=== PATIENT | male | born 1935 | race Caucasian/White ===

== ENCOUNTER 2019-05-23 17:20 | Inpatient (IN) ==
[2019-05-23] MEDS ORDERED: IPRATROPIUM/ALBUTEROL 3 ML AMPUL.NEB NEB ONE (17:30)
--- NOTE | 2019-05-23 17:33 | Emergency Department Note ---
SOB HPI - General Chief Complaint: Shortness of Breath/Dyspnea Stated Complaint: SOB for 3 weeks Time Seen by Provider: 05/23/19 17:26 Source: patient Mode of arrival: wheelchair Limitations: no limitations - History of Present Illness This patient was sent in by Dr. Holt who says he has been having shortness of breath that is been increasing for the last 3 weeks. Describes a lot of dyspnea on exertion. He has both COPD and heart failure and has a lot of chronic lymphedema of his lower extremities. No chest pain currently. He does use inhalers at home but does not seem to be wheezing at this time. - Related Data Home Medications Medication Instructions Recorded Confirmed Lutein Extract/Zeaxanthin Ext 1 each PO QDAY 06/12/16 05/23/19 [Lutein 15 mg Softgel] Vitamin D3 2,000 unit PO DAILY 06/12/16 05/23/19 bisoprolol fumarate 5 mg tablet 5 mg PO QDAY 90 Days #90 tab 11/04/16 05/23/19 warfarin 2.5 mg tablet 2.5 mg PO .COMPLEX tab 05/11/19 05/23/19 Previous Rx's Medication Instructions Recorded furosemide 40 mg tablet See Rx Instructions PO .QOD #135 09/06/18 tab calcitriol 0.25 mcg capsule 0.25 mcg PO QDAY #30 cap 09/20/18 allopurinol 300 mg tablet 300 mg PO QDAY #90 tab 01/19/19 simvastatin 20 mg tablet 20 mg PO QPM #90 tab 02/15/19 tamsulosin 0.4 mg capsule 0.4 mg PO QDAY #90 cap 02/15/19 albuterol sulfate 90 mcg/actuation 2 puff INHALATION Q6H PRN #18 g 03/13/19 aerosol inhaler colchicine 0.6 mg tablet 0.6 mg PO ONCE #20 tab 03/16/19 levofloxacin 500 mg tablet 500 mg PO QDAY #10 tab 03/20/19 blood sugar diagnostic See Dose Instructions .ROUTE 03/28/19 .MEDSUPPLY #100 each lancets See Dose Instructions .ROUTE 03/28/19 .MEDSUPPLY #100 each hydrocodone 10 mg-acetaminophen 1 tab PO Q6H PRN #30 tab 04/03/19 325 mg tablet umeclidinium 62.5 mcg/actuation 1 inh INHALATION Q24H #90 each 04/17/19 blister powder for inhalation gabapentin 300 mg capsule 300 mg PO QDAY #90 cap 05/09/19 glipizide 10 mg tablet 15 mg PO QDAY #135 tab 05/09/19 levothyroxine 137 mcg tablet 137 mcg PO QDAY #90 tab 05/09/19 sitagliptin 50 mg tablet 50 mg PO QDAY #90 tab 05/09/19 fluticasone furoate 200 1 inh INHALATION Q24H #60 each 05/17/19 mcg-vilanterol 25 mcg/dose inhalation powder triamcinolone acetonide 0.1 % 1 applic TOPICAL BID 10 Days #30 g 05/23/19 topical ointment Allergies Allergy/AdvReac Type Severity Reaction Status Date / Time No Known Drug Allergies Allergy Verified 05/23/19 16:27 Review of Systems All systems ED: reviewed and negative except as stated. Past Medical History - Past Medical History [facility] Narrative: Medical History (Last Reviewed 02/12/19 @ 13:53 by Luis Warren MD) CHF (congestive heart failure) (Acute) Gout (Acute) ADHF (acute decompensated heart failure) (Acute) Chronic kidney disease (CKD), stage IV (severe) (Chronic) Hypertensive renal disease (Chronic) Venous stasis dermatitis of both lower extremities (Acute) CHF (congestive heart failure) (Acute) Venous insufficiency (Chronic) Transient ischemic attack (Chronic) Fracture of rib, closed (Chronic) Rheumatic heart disease (Chronic) Renal insufficiency (Chronic 12/16/14) Osteoarthritis (Chronic) Macular degeneration (Chronic) Hypothyroidism (acquired) (Chronic) Hypertension, essential, benign (Chronic) Hyperlipemia (Chronic) Hearing loss (Chronic) Graves disease (Chronic) History of gout (Chronic) Gastroesophageal reflux (Chronic) Elevated liver enzymes (Chronic 12/16/14) Controlled type 2 DM with peripheral circulatory disorder (Chronic) History of colonic polyps (Chronic) Chronic obstructive pulmonary disease (Chronic) CAD (coronary artery disease) (Chronic) Bladder neck obstruction (Chronic) Atrial flutter (Chronic) Atrial fibrillation (Chronic) Past Surgical History (Last Reviewed 02/12/19 @ 13:53 by Luis Warren MD) History of pacemaker (Chronic 05/16/14) History of intraocular lens implant (Chronic) History of hydrocelectomy (Chronic) 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) History of Achilles tendon repair (Chronic) Family History (Last Reviewed 02/12/19 @ 13:53 by Luis Warren MD) Father Coronary artery disease Mother Diabetes mellitus Medical history: Reports: arthritis, atrial fibrillation, CHF, COPD, CAD (coronary artery disease), DM, GERD, hyperlipidemia, hypertension, renal disease, thyroid disease, TIA, valvular heart disease, other Surgical history ED: Reports: cataract, coronary bypass (CABG), orthopedic, other (achilles), pacemaker/AICD, vascular surgery (aortic valve porcine) - Social History smoking status: Former smoker Alcohol use: Reports: Occasionally Drug use: Reports: none Physical Exam Limitations: no limitations General appearance: alert Head: atraumatic Eye: Present: normal appearance ENT: Present: normal exam Neck: Present: normal inspection Chest: Present: normal inspection Respiratory: Present: rales/crackles Cardiovascular: Present: regular rate, normal rhythm, normal heart sounds Abdominal: Present: soft. Absent: distention, tenderness Extremities: Present: pedal edema, pretibial edema Neurological: Present: alert Psychiatric: Present: normal affect Skin: Present: warm, dry Course Vital Signs Temperature 97.6 F 05/23/19 17:22 Pulse Rate 66 05/23/19 17:22 Respiratory Rate 26 H 05/23/19 17:22 Blood Pressure 128/59 05/23/19 17:22 Pulse Oximetry (%) 85 L 05/23/19 17:22 Temperature 97.6 F 05/23/19 17:22 Pulse Rate 63 05/23/19 19:19 Respiratory Rate 25 H 05/23/19 19:19 Blood Pressure 152/121 05/23/19 19:19 Pulse Oximetry (%) 95 05/23/19 19:19 Shortness of Breath/Dyspnea - [facility] Narrative Medical decision making narrative: Chest x-ray is hard to read what the radiologist says is consistent with pneumonia in the bases atelectasis heart failure and COPD. We did blood cultures and treated him with a DuoNeb treatment which actually made him feel better. Also gave him 40 mg of IV Lasix and Rocephin and Levaquin. He will be admitted to the hospital by Dr. Millard. - Lab Data Lab results reviewed: Yes I reviewed the patient's lab results. Result diagrams: 05/23/19 17:34 05/23/19 17:34 Lab Results 05/23/19 05/23/19 05/23/19 Range/Units 16:18 17:31 17:34 WBC 10.6 (4.5-11.0) K/mcL RBC 4.03 L (4.50-5.90) M/mcL Hgb 12.8 L (13.5-16.5) g/dL Hct 40.2 L (41.0-55.0) % MCV 99.7 (80.0-100.0) fL MCH 31.9 (26.0-34.0) pg MCHC 31.9 (31.0-36.0) g/dL RDW 16.5 H (11.5-14.5) % Plt Count 240 (140-440) K/mcL MPV 7.1 L (7.4-10.4) fL Gran % 79.3 H (38.0-78.0) % Lymph % (Auto) 10.2 L (15.5-49.0) % [place] % (Auto) 8.7 (1.0-12.0) % Eos % (Auto) 1.7 (0.0-7.0) % Baso % (Auto) 0.1 (0.0-2.0) % Gran # 8.4 H (1.8-8.0) K/mcL Lymph # (Auto) 1.1 L (1.5-4.8) K/mcL [place] # (Auto) 0.9 (0.1-0.9) K/mcL Eos # (Auto) 0.2 (0.0-0.7) K/mcL Baso # (Auto) 0 (0.0-0.3) K/mcL VBG Lactic Acid 2.3 H (0.5-2.0) mmol/L Sodium (133-145) mmol/L Potassium (3.3-5.1) mmol/L Chloride (96-108) mmol/L Carbon Dioxide (22-30) mmol/L Anion Gap (8-16) BUN (8-23) mg/dl Creatinine (0.7-1.2) mg/dl GFR Calculation Glucose (70-105) mg/dL Calcium (8.6-10.4) mg/dl Total Bilirubin (0.0-1.0) mg/dL AST (0-37) U/l ALT (0-40) U/l Alkaline Phosphatase (39-117) U/L Troponin T (0-0.03) ng/ml NT-Pro-B Natriuret Pep (0-450) pg/ml Total Protein (5.9-8.4) gm/dL Albumin (3.2-5.2) gm/dL Globulin (2.2-3.7) gm/dL Albumin/Globulin Ratio (1.0-2.3) Procalcitonin < 0.05 (<0.10) ng/mL 05/23/19 05/23/19 Range/Units 17:34 17:34 WBC (4.5-11.0) K/mcL RBC (4.50-5.90) M/mcL Hgb (13.5-16.5) g/dL Hct (41.0-55.0) % MCV (80.0-100.0) fL MCH (26.0-34.0) pg MCHC (31.0-36.0) g/dL RDW (11.5-14.5) % Plt Count (140-440) K/mcL MPV (7.4-10.4) fL Gran % (38.0-78.0) % Lymph % (Auto) (15.5-49.0) % [place] % (Auto) (1.0-12.0) % Eos % (Auto) (0.0-7.0) % Baso % (Auto) (0.0-2.0) % Gran # (1.8-8.0) K/mcL Lymph # (Auto) (1.5-4.8) K/mcL [place] # (Auto) (0.1-0.9) K/mcL Eos # (Auto) (0.0-0.7) K/mcL Baso # (Auto) (0.0-0.3) K/mcL VBG Lactic Acid (0.5-2.0) mmol/L Sodium 131 L (133-145) mmol/L Potassium 4.7 (3.3-5.1) mmol/L Chloride 89 L (96-108) mmol/L Carbon Dioxide 26 (22-30) mmol/L Anion Gap 16.0 (8-16) BUN 43 H (8-23) mg/dl Creatinine 2.1 H (0.7-1.2) mg/dl GFR Calculation 28 Glucose 167 H (70-105) mg/dL Calcium 10.2 (8.6-10.4) mg/dl Total Bilirubin 0.6 (0.0-1.0) mg/dL AST 18 (0-37) U/l ALT 13 (0-40) U/l Alkaline Phosphatase 114 (39-117) U/L Troponin T 0.08 H* (0-0.03) ng/ml NT-Pro-B Natriuret Pep 664.0 H (0-450) pg/ml Total Protein 8.4 (5.9-8.4) gm/dL Albumin 4.0 (3.2-5.2) gm/dL Globulin 4.4 H (2.2-3.7) gm/dL Albumin/Globulin Ratio 0.9 L (1.0-2.3) Procalcitonin (<0.10) ng/mL - Radiology Data Radiology results reviewed: Yes I reviewed the patient's radiology results. Disposition Pt seen by [employer]INEER/PA only: No Clinical Impression: Acute exacerbation of chronic obstructive airways disease, CHF (congestive heart failure), Community acquired pneumonia Disposition: Xfer As Inpt ([facility]) Condition: Good Referrals: Ramsey Andrade MD [Primary Care Provider] - Time of Disposition: 19:32
--- NOTE | 2019-05-23 17:50 | XRay Report ---
HISTORY: Shortness of breath for three weeks FINDINGS: Moderate sized left pleural effusion is present and there is a small right-sided effusion. This is causing atelectasis in both lower lobes. There are also vague perihilar infiltrates. The heart is largely obscured by the consolidation. There is a dual-chamber pacemaker and prosthetic aortic valve. The pulmonary vessels are somewhat prominent and there may be underlying interstitial fibrosis in the upper lobes. Comparison with the prior exam from 03/13/19 shows the left-sided effusion and left lower lobe atelectasis have become worse. IMPRESSION: Bilateral pleural effusions with bilateral atelectasis and/or pneumonia. Possible pulmonary vascular congestion and COPD Interpreted and Authenticated by: Bautista Vidal 05/23/19
[2019-05-23] MEDS ORDERED: FUROSEMIDE 40 MG/4 ML VIAL IV ONE (18:05)
[2019-05-23 18:15] LABS: Basophils # (Auto) 0 K/mcL (0.0-0.3); Basophils % (Auto) 0.1 % (0.0-2.0); Eosinophils # (Auto) 0.2 K/mcL (0.0-0.7); Eosinophils % (Auto) 1.7 % (0.0-7.0); Granulocytes % (Auto) 79.3 % (38.0-78.0); Hematocrit 40.2 % (41.0-55.0); Hemoglobin 12.8 g/dL (13.5-16.5); Lymphocytes # (Auto) 1.1 K/mcL (1.5-4.8); Lymphocytes % (Auto) 10.2 % (15.5-49.0); Mean Cell Volume 99.7 fL (80.0-100.0); Mean Corpuscular HGB Conc 31.9 g/dL (31.0-36.0); Mean Platelet Volume 7.1 fL (7.4-10.4); Monocytes # (Auto) 0.9 K/mcL (0.1-0.9); Monocytes % (Auto) 8.7 % (1.0-12.0); Platelet Count 240 K/mcL (140-440); RBC 4.03 M/mcL (4.50-5.90); Red Cell Distribution Width 16.5 % (11.5-14.5); WBC 10.6 K/mcL (4.5-11.0)
[2019-05-23 18:39] LABS: ALT/SGPT 13 U/l (0-40); AST/SGOT 18 U/l (0-37); Albumin/Globulin Ratio 0.9 (1.0-2.3); Alkaline Phosphatase 114 U/L (39-117); Bilirubin,Total 0.6 mg/dL (0.0-1.0); Blood Urea Nitrogen 43 mg/dl (8-23); Calcium 10.2 mg/dl (8.6-10.4); Carbon Dioxide 26 mmol/L (22-30); Chloride 89 mmol/L (96-108); Globulin 4.4 gm/dL (2.2-3.7); Glomerular Filtration Rate 28; Glucose 167 mg/dL (70-105)
[2019-05-23] MEDS ORDERED: LEVOFLOXACIN 750 MG/150 ML BAG IV ONE (18:43)
[2019-05-23] MEDS ORDERED: cefTRIAXone 1 GM VIAL IV ONE (18:43)
--- NOTE | 2019-05-23 19:45 | Internal Med History&Physical ---
Medical - H&P: HPI Patient information: Note initiated : 05/23/19 at 7:42 pm Service Date, if different from initiated Date: [] Patient: Jeramy French a 83 y/o M admitted on for SOB for 3 weeks. Chief Complaint: [] Chief complaint: weakness History of present illness: Mr. French is a 83 year old M with a history of chronic disease stage IV/CAD/CHF/a flutter on anticoagulation presents to the ER with roughly 1 month onset of dyspnea, weakness fatigue and inability to function. Patient has noted progressive weight gain involving lower extremity along with gradual distention of abdomen. But he denies abdominal pain. His shortness of breath has progressed from maximal exertion to dyspnea at rest. He has not been able to get a restful sleep over the last couple of weeks. He is markedly orthopneic. He presents today with a combination of above symptoms. Initial work-up was consistent with severe hypoxia requiring 4 L oxygen. Patient was started on noninvasive ventilation after imaging showed bibasilar pneumonia/pleural effusion and blood gas consistent with hypoxia. Patient was started on antibiotic coverage and Solu-Medrol and subsequently hospitalist service was consulted. After evaluation patient is alert and oriented. He was able to answer most of the question. He is unable to talk in full sentences. No family members are present. He denies recent sick contacts. He denies fever chills but endorses to nonproductive cough that has progressed. He has not seen a primary care physician since the symptoms began. Other than that he denies diarrhea, dysuria, rash, joint pain, unilateral weakness, fainting spells or vertigo. Review of systems 10 point review of system was performed and is negative except as above Medical - H&P: PMH Medical history: CHF (congestive heart failure) (Acute) Gout (Acute) ADHF (acute decompensated heart failure) (Acute) Hypertensive renal disease (Chronic) Venous stasis dermatitis of both lower extremities (Acute) CHF (congestive heart failure) (Acute) Venous insufficiency (Chronic) edema Transient ischemic attack (Chronic) Fracture of rib, closed (Chronic) Rheumatic heart disease (Chronic) Renal insufficiency (Chronic 12/16/14) Osteoarthritis (Chronic) Macular degeneration (Chronic) L Hypothyroidism (acquired) (Chronic) Hypertension, essential, benign (Chronic) Hyperlipemia (Chronic) Hearing loss (Chronic) Graves disease (Chronic) History of gout (Chronic) Gastroesophageal reflux (Chronic) Elevated liver enzymes (Chronic 12/16/14) Controlled type 2 DM with peripheral circulatory disorder (Chronic) History of colonic polyps (Chronic) Chronic obstructive pulmonary disease (Chronic) CAD (coronary artery disease) (Chronic) (Post CABG) Bladder neck obstruction (Chronic) Atrial flutter (Chronic) Atrial fibrillation (Chronic) Surgical History History of pacemaker (Chronic 05/16/14) History of intraocular lens implant (Chronic) bilateral History of hydrocelectomy (Chronic) History of coronary artery bypass graft (Chronic) R 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) History of Achilles tendon repair (Chronic) Left Family History Father , at 75y Coronary artery disease Mother , at 84y Diabetes mellitus Social History marital status: education level: high school occupational status: retired other: 3 children/5 gc/5 ggc smoking status: Former smoker alcohol intake frequency: former alcohol drinker Medical - H&P: Meds Home Medications Medication Instructions Recorded Confirmed Type Lutein Extract/Zeaxanthin Ext 1 each PO QDAY 06/12/16 05/23/19 History [Lutein 15 mg Softgel] Vitamin D3 2,000 unit PO DAILY 06/12/16 05/23/19 History bisoprolol fumarate 5 mg tablet 5 mg PO QDAY 90 Days #90 tab 11/04/16 05/23/19 History furosemide 40 mg tablet See Rx Instructions PO .QOD #135 09/06/18 05/23/19 Rx tab calcitriol 0.25 mcg capsule 0.25 mcg PO QDAY #30 cap 09/20/18 05/23/19 Rx allopurinol 300 mg tablet 300 mg PO QDAY #90 tab 01/19/19 05/23/19 Rx simvastatin 20 mg tablet 20 mg PO QPM #90 tab 02/15/19 05/23/19 Rx tamsulosin 0.4 mg capsule 0.4 mg PO QDAY #90 cap 02/15/19 05/23/19 Rx albuterol sulfate 90 mcg/actuation 2 puff INHALATION Q6H PRN #18 g 03/13/19 05/23/19 Rx aerosol inhaler colchicine 0.6 mg tablet 0.6 mg PO ONCE #20 tab 03/16/19 05/23/19 Rx levofloxacin 500 mg tablet 500 mg PO QDAY #10 tab 03/20/19 05/23/19 Rx blood sugar diagnostic See Dose Instructions .ROUTE 03/28/19 05/23/19 Rx .MEDSUPPLY #100 each lancets See Dose Instructions .ROUTE 03/28/19 05/23/19 Rx .MEDSUPPLY #100 each hydrocodone 10 mg-acetaminophen 1 tab PO Q6H PRN #30 tab 04/03/19 05/23/19 Rx 325 mg tablet umeclidinium 62.5 mcg/actuation 1 inh INHALATION Q24H #90 each 04/17/19 05/23/19 Rx blister powder for inhalation gabapentin 300 mg capsule 300 mg PO QDAY #90 cap 05/09/19 05/23/19 Rx glipizide 10 mg tablet 15 mg PO QDAY #135 tab 05/09/19 05/23/19 Rx levothyroxine 137 mcg tablet 137 mcg PO QDAY #90 tab 05/09/19 05/23/19 Rx sitagliptin 50 mg tablet 50 mg PO QDAY #90 tab 05/09/19 05/23/19 Rx warfarin 2.5 mg tablet 2.5 mg PO .COMPLEX tab 05/11/19 05/23/19 History fluticasone furoate 200 1 inh INHALATION Q24H #60 each 05/17/19 05/23/19 Rx mcg-vilanterol 25 mcg/dose inhalation powder triamcinolone acetonide 0.1 % 1 applic TOPICAL BID 10 Days #30 g 05/23/19 05/23/19 Rx topical ointment Allergies Allergy/AdvReac Type Severity Reaction Status Date / Time No Known Drug Allergies Allergy Verified 05/23/19 16:27 Medical - H&P: Exam - Constitutional Vitals: Temp Pulse Resp BP Pulse Ox 97.6 F 63 25 H 152/121 95 05/23/19 17:22 05/23/19 19:19 05/23/19 19:19 05/23/19 19:19 05/23/19 19:19 Medical - H&P: Reslt - Labs CBC & Chem 7: 05/24/19 03:45 05/24/19 03:45 Labs: Short CBC 05/23/19 Range/Units 17:34 WBC 10.6 (4.5-11.0) K/mcL Hgb 12.8 L (13.5-16.5) g/dL Hct 40.2 L (41.0-55.0) % Plt Count 240 (140-440) K/mcL BMP 05/23/19 17:34 Sodium 131 L Potassium 4.7 Chloride 89 L Carbon Dioxide 26 BUN 43 H Creatinine 2.1 H Glucose 167 H Calcium 10.2 Cardiac Enzymes 05/23/19 Range/Units 17:34 Troponin T 0.08 H* (0-0.03) ng/ml Liver Function 05/23/19 Range/Units 17:34 Total Bilirubin 0.6 (0.0-1.0) mg/dL AST 18 (0-37) U/l ALT 13 (0-40) U/l Alkaline Phosphatase 114 (39-117) U/L Albumin 4.0 (3.2-5.2) gm/dL Medical - H&P: A/P (1) Bilateral pneumonia Current visit: Yes Status: Acute * Bilateral pneumonia-aspiration versus community acquired. Continue antibiotic coverage. * COPD exacerbation continue bronchodilators/IV steroids/pulmonary toilet and supplemental oxygen * Hypoxic resp failure-continue noninvasive ventilation * H/o CHF-with associated pleural effusion. Continue beta-aliica/diuretics. echocardiogram to evaluate left ventricular function * Ascites/pleural effusion-unclear etiology. Paracentesis/cytology * DMII-basal prandial insulin/sitagliptin * Gout-continue Colchicine * CKD stage 4-continue monitoring. Nephrology consult if indicated * Aflutter/ Afib rate controlled on beta-alicia. Continue anti-Coblation Coumadin for CVA prophylaxis * Anticoagulation on Coumadin * Neuropathy continue gabapentin * Hypothyroidism continue thyroxine * Hyperlipidemia continue statin * BPH continue tamsulosin * Prophylaxis on Coumadin Plan * Inpatient ICU admit in light of [place] score 18 high risk mortality * Noninvasive ventilation for profound hypoxia * Bronchodilators/antibiotics/steroids/pulmonary toilet and aspiration precaution * Broad antibiotics * Serial ABG/chest imaging * Paracentesis/studies * PT OT/nutrition support * Case management to coordinate discharge planning Time spent on history and physical 70 minutes, in addition 35 minutes critical time spent on management of hypoxic split failure/noninvasive ventilation/blood gas and imaging review and treatment plan
[2019-05-23] MEDS ORDERED: ACETAMINOPHEN 1,000 MG/100 ML BOTTLE IV PRN (20:28)
[2019-05-23] MEDS ORDERED: FUROSEMIDE 40 MG TABLET PO SCH (20:28)
[2019-05-23] MEDS ORDERED: ACETAMINOPHEN 325 MG TABLET PO PRN (20:28)
[2019-05-23] MEDS ORDERED: hydrALAZINE 20 MG/ML VIAL IV PRN (20:28)
[2019-05-23] MEDS ORDERED: guaiFENesin/CODEINE 10 ML UDC PO PRN (20:28)
[2019-05-23] MEDS ORDERED: MAGNESIUM SULFATE 2 GM/50 ML BAG IV PRN (20:28)
[2019-05-23] MEDS ORDERED: DEXTROSE 50% 50 ML VIAL IV PRN (20:28)
[2019-05-23] MEDS ORDERED: DEXTROSE 31 GM ORAL.SUSP PO PRN (20:28)
[2019-05-23] MEDS ORDERED: ONDANSETRON 4 MG/2 ML VIAL IV PRN (20:28)
[2019-05-23] MEDS ORDERED: POTASSIUM CHLORIDE 20 MEQ PACKET PO PRN (20:28)
[2019-05-23] MEDS: PIPERACILLIN SODIUM/TAZOBACTAM 3.375 GM in DEXTROSE 5% IN WATER 50 ML IV SCH (21:50)
[2019-05-23] MEDS: DOCUSATE SODIUM 100 MG CAPSULE PO SCH (21:58)
[2019-05-23] MEDS: INSULIN LISPRO 1 UNIT/0.01 ML UNIT SQ SCH (21:58)
[2019-05-23] MEDS: SIMVASTATIN 20 MG TABLET PO SCH (21:58)
[2019-05-23] MEDS: CYANOCOBALAMIN (VITAMIN B-12) 500 MCG TABLET PO SCH (21:58)
[2019-05-23] MEDS: SENNOSIDES/DOCUSATE SODIUM 1 TAB TABLET PO SCH (21:58)
[2019-05-23] MEDS: IPRATROPIUM/ALBUTEROL 3 ML AMPUL.NEB NEB SCH (22:07)
[2019-05-23] MEDS: BUDESONIDE 0.5 MG/2 ML AMPUL.NEB NEB SCH (22:08)
[2019-05-23] MEDS: TRIAMCINOLONE ACETONIDE TOPICAL SCH (22:16)
[2019-05-23] MEDS: 0.9 % SODIUM CHLORIDE 10 ML SYRINGE IV SCH (22:17)
[2019-05-23] MEDS: METOPROLOL TARTRATE 5 MG/5 ML VIAL IV SCH (22:43)
[2019-05-24] MEDS: methylPREDNISolone SOD SUCC 125 MG/2 ML VIAL IV SCH ×5 (02:14→23:30)
[2019-05-24] MEDS: PIPERACILLIN SODIUM/TAZOBACTAM 3.375 GM in DEXTROSE 5% IN WATER 50 ML IV SCH ×5 (02:15→23:31)
[2019-05-24] MEDS: IPRATROPIUM/ALBUTEROL 3 ML AMPUL.NEB NEB SCH ×6 (02:35→23:02)
[2019-05-24 04:45] LABS: Hemoglobin 11.5 g/dL (13.5-16.5); Mean Cell Volume 100.9 fL (80.0-100.0); Platelet Count 208 K/mcL (140-440); RBC 3.57 M/mcL (4.50-5.90); Red Cell Distribution Width 16.6 % (11.5-14.5); WBC 9.5 K/mcL (4.5-11.0)
[2019-05-24 05:08] LABS: ALT/SGPT 11 U/l (0-40); AST/SGOT 15 U/l (0-37); Albumin 3.3 gm/dL (3.2-5.2); Albumin/Globulin Ratio 0.8 (1.0-2.3); Alkaline Phosphatase 94 U/L (39-117); Bilirubin,Direct < 0.2 mg/dL (0.0-0.3); Bilirubin,Total 0.5 mg/dL (0.0-1.0); Blood Urea Nitrogen 44 mg/dl (8-23); Calcium 9.3 mg/dl (8.6-10.4); Carbon Dioxide 27 mmol/L (22-30); Chloride 94 mmol/L (96-108); Globulin 3.9 gm/dL (2.2-3.7); Glomerular Filtration Rate 26; Glucose 232 mg/dL (70-105); Lactate Dehydrogenase 169 U/L (94-250); Phosphorous 3.7 mg/dL (2.7-4.5); Triglycerides 89 mg/dl (<150); Uric Acid 4.8 mg/dL (2.5-8.0)
[2019-05-24] MEDS: 0.9 % SODIUM CHLORIDE 10 ML SYRINGE IV SCH ×3 (05:45→21:52)
[2019-05-24] MEDS: LEVOTHYROXINE SODIUM 112 MCG TABLET PO SCH (07:18)
[2019-05-24] MEDS: LEVOTHYROXINE 25 MCG TABLET PO SCH (07:18)
[2019-05-24] MEDS: INSULIN LISPRO 1 UNIT/0.01 ML UNIT SQ SCH ×5 (08:00→23:37)
[2019-05-24 08:01] LABS: INR 2.8 (0.9-1.1); Prothrombin Time 29.1 sec (11.9-14.5)
[2019-05-24] MEDS: BUDESONIDE 0.5 MG/2 ML AMPUL.NEB NEB SCH ×2 (08:01→19:02)
[2019-05-24] MEDS ORDERED: COLCHICINE 0.6 MG TABLET PO PRN (09:00)
[2019-05-24] MEDS ORDERED: NON FORMULARY MEDICATION 1 DOSE MISCELL (Levothyroxine Sodium [Synthroid] 137 MCG) PO SCH (09:00)
[2019-05-24 09:20] LABS: Anisocytosis 1+ (NONE SEEN); Eosinophils % (Manual) 2 % (0-7); Lymphocytes % 10 % (15-49); Macrocytosis 1+ (NONE SEEN); Monocytes % (Manual) 11 % (1-12); Platelet Estimate NORMAL (NORMAL); RBC Morphology ABNORM (NORMAL); Segmented Neutrophils % 77 % (38-78)
--- NOTE | 2019-05-24 09:32 | Internal Med Progress Note ---
Medical - PN: Subj Patient information: Note initiated : 05/24/19 at 9:30 am Service Date, if different from initiated Date: [] Patient: Jeramy French a 83 y/o M admitted on 05/23/19 for SOB for 3 weeks. Chief Complaint: [] Interval history: Mr. French is a 83 year old M with a history of chronic disease stage I V/CAD/CHF/a flutter on anticoagulation presents to the ER with roughly 1 month onset of dyspnea, weakness fatigue and inability to function. Patient has noted progressive weight gain involving lower extremity along with gradual distention of abdomen. But he denies abdominal pain. His shortness of breath has progressed from maximal exertion to dyspnea at rest. He has not been able to get a restful sleep over the last couple of weeks. He is markedly orthopneic. He presents today with a combination of above symptoms. Initial work-up was consistent with severe hypoxia requiring 4 L oxygen. Patient was started on noninvasive ventilation after imaging showed bibasilar pneumonia/pleural effusion and blood gas consistent with hypoxia. Patient was started on antibiotic coverage and Solu-Medrol and subsequently hospitalist service was consulted. After evaluation patient is alert and oriented. He was able to answer most of the question. He is unable to talk in full sentences. No family members are present. He denies recent sick contacts. He denies fever chills but endorses to nonproductive cough that has progressed. He has not seen a primary care physician since the symptoms began. Other than that he denies diarrhea, dysuria, rash, joint pain, unilateral weakness, fainting spells or vertigo. 05/24-patient seen in room along with daughter. Feels a lot better. Overnight on BiPAP. Breathing a lot better. No telemetry events. paced rhythm, White count 9.5. Diuresing. Distended abdomen. Unable to talk in full sentences. Continuing antibiotic coverage on Zosyn and Levaquin. - Constitutional Vitals: Vital Signs Temp Pulse Resp BP Pulse Ox 99.0 F 65 18 113/64 95 05/24/19 04:05 05/24/19 08:09 05/24/19 08:09 05/24/19 04:01 05/24/19 08:09 Period Temp Pulse Resp BP Sys/[place] Pulse Ox Last 24 Hr 97.0 F-99.0 F 61-69 13-30 85-152/57-121 85-98 Intake and Output 05/23/19 05/24/19 05/24/19 21:59 05:59 13:59 Intake Total 110 140 Output Total 275 1000 Balance -165 -860 Weight 229 lb 8 oz Intake & Output: Intake & Output 05/23/19 05/24/19 05/24/19 21:59 05:59 13:59 Intake Total 110 140 Output Total 275 1000 Balance -165 -860 Weight 229 lb 8 oz Intake: IV 110 140 Zosyn 3.375 gm In Dextrose 5% 100 in Water 50 ml @ 100 mls/hr IV Q6H [facility] Rx#:[id number] Output: Void Amount 275 1000 Other: Meal Egg salad sandwich Percent of Meal Consumed 100% Feeding Ability Independent Urine Appearance Clear Urine Color Pale General appearance: moderate distress (Labored breathing) Exam: Labored breathing Absent breath sounds lateral and posterior inferior chest Lymphedema 2+ lower extremity Distended abdomen but no rebound or thrill Systolic murmur Paced rhythm on telemetry Medical - PN: Obj Da - Labs CBC & Chem 7: 05/24/19 03:45 05/24/19 03:45 Labs: Abnormal Lab Results 05/24/19 05/24/19 05/24/19 07:06 03:45 03:45 RBC Hgb Hct MCV RDW MPV Gran % Lymph % (Auto) Gran # Lymph # (Auto) Lymphocytes % RBC Morphology Anisocytosis Macrocytosis ESR PT 29.1 H INR 2.8 H VBG Lactic Acid 2.1 H Sodium Chloride 94 L BUN 44 H Creatinine 2.2 H Glucose 232 H Troponin T C-Reactive Protein NT-Pro-B Natriuret Pep Globulin 3.9 H Albumin/Globulin Ratio 0.8 L 05/24/19 05/23/19 05/23/19 03:45 17:34 17:34 RBC 3.57 L Hgb 11.5 L Hct 36.0 L MCV 100.9 H RDW 16.6 H MPV 7.0 L Gran % Lymph % (Auto) Gran # Lymph # (Auto) Lymphocytes % 10 L RBC Morphology Abnorm A Anisocytosis 1+ A Macrocytosis 1+ A ESR PT INR VBG Lactic Acid Sodium 131 L Chloride 89 L BUN 43 H Creatinine 2.1 H Glucose 167 H Troponin T 0.08 H* C-Reactive Protein NT-Pro-B Natriuret Pep 664.0 H Globulin 4.4 H Albumin/Globulin Ratio 0.9 L 05/23/19 05/23/19 05/23/19 17:34 17:31 17:31 RBC 4.03 L Hgb 12.8 L Hct 40.2 L MCV RDW 16.5 H MPV 7.1 L Gran % 79.3 H Lymph % (Auto) 10.2 L Gran # 8.4 H Lymph # (Auto) 1.1 L Lymphocytes % RBC Morphology Anisocytosis Macrocytosis ESR 95 H PT INR VBG Lactic Acid Sodium Chloride BUN Creatinine Glucose Troponin T C-Reactive Protein 2.7 H NT-Pro-B Natriuret Pep Globulin Albumin/Globulin Ratio 05/23/19 16:18 RBC Hgb Hct MCV RDW MPV Gran % Lymph % (Auto) Gran # Lymph # (Auto) Lymphocytes % RBC Morphology Anisocytosis Macrocytosis ESR PT INR VBG Lactic Acid 2.3 H Sodium Chloride BUN Creatinine Glucose Troponin T C-Reactive Protein NT-Pro-B Natriuret Pep Globulin Albumin/Globulin Ratio Meds: Medications Acetaminophen (Tylenol) 650 mg PO Q4-6HP PRN PRN Reason: PAIN/FEVER > 101 Hydrocodone Bitart/Acetaminophen ([place] 10/325mg) 1 tab PO Q6H PRN PRN Reason: pain Albuterol/Ipratropium (Duoneb) 3 ml NEB Q4HRT [facility] Last Admin: 05/24/19 08:02 Dose: 3 ml Documented by: Allopurinol (Zylopriim) 300 mg PO QDAY [facility] Bisoprolol Fumarate (Zebeta) 5 mg PO QDAY [facility] Budesonide (Pulmicort) 0.5 mg NEB Q12 [facility] Last Admin: 05/24/19 08:01 Dose: 0.5 mg Documented by: Calcitriol (Rocaltrol) 0.25 mcg PO QDAY [facility] Colchicine (Colcrys) 0 mg PO UD PRN PRN Reason: GOUT Cyanocobalamin (Vitamin B-12) 1,000 mcg PO BID [facility] Stop: 05/28/19 09:01 Last Admin: 05/23/19 21:58 Dose: 1,000 mcg Documented by: Dextrose (Dextrose 50%) 0 ml IV UD PRN PRN Reason: Hypoglycemia Diagnostic Test (Pha) (Accu-Chek) 1 each FS ACHS [facility] Last Admin: 05/24/19 07:19 Dose: 1 each Documented by: Docusate Sodium (Colace) 100 mg PO BID [facility] Last Admin: 05/23/19 21:58 Dose: 100 mg Documented by: Folic Acid (Folic Acid) 1 mg PO DAILY [facility] Furosemide (Lasix) 40 mg IV Q8 [facility] Gabapentin (Neurontin) 300 mg PO QDAY [facility] Glucose (Insta-Glucose) 15 gm PO PRN PRN PRN Reason: Hypoglycemia Guaifenesin/Codeine Phosphate (Robitussin Ac) 10 ml PO Q4HP PRN PRN Reason: Cough Hydralazine HCl (Apresoline) 10 mg IV Q4-6HP PRN PRN Reason: Hypertension Acetaminophen (Ofirmev) 1,000 mg in 100 mls @ 200 mls/hr IV Q6HP PRN PRN Reason: PAIN/FEVER > 101 Magnesium Sulfate (Magnesium Sulfate) 2 gm in 50 mls @ 50 mls/hr IV UD PRN PRN Reason: MG = or < 1.7 Piperacillin Sod/Tazobactam (Sod 3.375 gm/ Dextrose) 50 mls @ 100 mls/hr IV Q6H [facility]; Protocol Last Admin: 05/24/19 05:45 Dose: 100 mls/hr Documented by: Levofloxacin (Levaquin) 750 mg in 150 mls @ 100 mls/hr IV Q48H [facility]; Protocol Insulin Human Lispro (Humalog) 0 unit SQ [facility]; Protocol Last Admin: 05/23/19 21:58 Dose: 2 units Documented by: Iron Carb/Multivit/Software Product Specialist/Folic Acid (Multivitamin W/Minerals) 1 tab PO DAILY [facility] Levothyroxine Sodium (Synthroid) 112 mcg PO QAMAC [facility] Last Admin: 05/24/19 07:18 Dose: 112 mcg Documented by: Levothyroxine Sodium (Synthroid) 25 mcg PO QAMAC [facility] Last Admin: 05/24/19 07:18 Dose: 25 mcg Documented by: Methylprednisolone Sodium Succinate (Solu-Medrol) 60 mg IV Q6 [facility] Last Admin: 05/24/19 05:45 Dose: 60 mg Documented by: Multivitamins/Minerals (Ocuvite) 1 tab PO DAILY [facility] Non-Formulary Medication (Glipizide [Glucotrol]) 15 mg PO QDAY [facility] Ondansetron HCl (Zofran) 4 mg IV Q4-6HP PRN PRN Reason: Nausea And Vomiting Breo Ellipta 200-25 (Mcg Inh) 1 dose INH Q24H [facility] Incruse Ellipta] 1 (Inh) 1 dose INH Q24H [facility] Triamcinolone Acetonide 0.1% Ointment 1 dose TOPICAL BID [facility] Potassium Chloride (Klor-Con) 40 meq PO DAILYP PRN PRN Reason: K+ < 3.5 Senna/Docusate Sodium (Senna Plus Tablet) 1 tab PO HS [facility] Last Admin: 05/23/19 21:58 Dose: 1 tab Documented by: Simvastatin (Zocor) 20 mg PO QPM [facility] Last Admin: 05/23/19 21:58 Dose: 20 mg Documented by: Sitagliptin Phosphate (Januvia) 50 mg PO QDAY [facility] Sodium Chloride (Saline Flush) 10 ml IV Q8 [facility] Last Admin: 05/24/19 05:45 Dose: 10 ml Documented by: Tamsulosin HCl (Flomax) 0.4 mg PO QDAY [facility] Thiamine HCl (Vitamin B1) 100 mg PO DAILY [facility] Trazodone HCl (Desyrel) 50 mg PO HSP PRN PRN Reason: Insomnia Warfarin Sodium (Coumadin Per Pharmacy) 1 order PO DAILY@1400 [facility] Medical - PN: A/P - Time Spent With Patient Total time spent is greater than 50% in coordination of care (as documented) at patient's floor/unit and/or counseling patient: 25 - 35 minutes (Critical care time) (1) Bilateral pneumonia Status: Acute Assessment and plan: * Bilateral pneumonia-suspect aspiration versus community acquired. Continue antibiotic coverage and de-escalate based on cultures. * COPD exacerbation continue bronchodilators/IV steroids/pulmonary toilet and supplemental oxygen * Hypoxic resp failure-clinical improvement noted on noninvasive ventilation, wean as tolerated. Serial ABG * H/o CHF-with associated pleural effusion. Continue beta-alicia/diuretics. echocardiogram to evaluate left ventricular function * Suspect ascites/pleural effusion-unclear etiology. Paracentesis/cytology * DMII-basal prandial insulin/sitagliptin * Gout-continue Colchicine * CKD stage 4-continue monitoring. Nephrology consult if indicated * Aflutter/ Afib rate controlled on beta-alicia. Paced rhythm. Continue anti-coagulation Coumadin for CVA prophylaxis * Anticoagulation on Coumadin * Prosthetic aortic valve. * Neuropathy continue gabapentin * Hypothyroidism continue thyroxine * Hyperlipidemia continue statin * BPH continue tamsulosin * Prophylaxis on Coumadin Plan * Wean noninvasive ventilation as tolerated * Continue bronchodilators/antibiotics/steroids/pulmonary toilet * ST eval/aspiration precaution * Continue broad antibiotics * Serial ABG/chest imaging * Paracentesis/studies * PT OT * Nutrition support * Case management to coordinate discharge planning Current Visit: Yes Medical - PN: Qual - VTE Deep Vein Thrombosis/Pulmonary Embolism Present on Admission: No
[2019-05-24] MEDS: sitaGLIPtin 50 MG TABLET PO SCH (09:51)
[2019-05-24] MEDS: MULTIVIT,THER IRON,CA,FA & MIN 1 TABLET PO SCH (09:51)
[2019-05-24] MEDS: CYANOCOBALAMIN (VITAMIN B-12) 500 MCG TABLET PO SCH ×2 (09:51→21:51)
[2019-05-24] MEDS: BISOPROLOL 5 MG TABLET PO SCH (09:51)
[2019-05-24] MEDS: VIT A,C & E/LUTEIN/MINERALS TABLET PO SCH (09:51)
[2019-05-24] MEDS: CALCITRIOL 0.25 MCG CAPSULE PO SCH (09:51)
[2019-05-24] MEDS: DOCUSATE SODIUM 100 MG CAPSULE PO SCH ×2 (09:52→21:51)
[2019-05-24] MEDS: GABAPENTIN 300 MG CAPSULE PO SCH (09:52)
[2019-05-24] MEDS: FOLIC ACID 1 MG TABLET PO SCH (09:52)
[2019-05-24] MEDS: THIAMINE 100 MG TABLET PO SCH (09:52)
[2019-05-24] MEDS: TAMSULOSIN 0.4 MG CAPSULE PO SCH (09:52)
[2019-05-24] MEDS: ALLOPURINOL 300 MG TABLET PO SCH (10:15)
--- NOTE | 2019-05-24 10:52 | Ultrasound Report ---
History: Evaluate for ascites FINDINGS: Limited views were obtained of all four quadrants. There is no evidence of ascites within the abdomen or pelvis. No gross mass is identified. IMPRESSION: Normal exam Interpreted and Authenticated by: Bautista Vidal 05/24/19
[2019-05-24] MEDS: glipiZIDE 5 MG TABLET PO SCH (12:07)
[2019-05-24] MEDS: INCRUSE ELLIPTA INH SCH (13:28)
[2019-05-24] MEDS ORDERED: FUROSEMIDE 40 MG/4 ML VIAL IV SCH (14:00)
[2019-05-24] MEDS ORDERED: WARFARIN 2.5 MG TABLET PO ONE (14:00)
[2019-05-24 18:13] LABS: Appearance,Urine CLEAR; Bacteria,Urine 0 /hpf (0); Bilirubin,Urine NEG (NEG); Color,Urine YELLOW; Glucose,Urine (UA) >=500 mg/dL (NEG); Ketones,Urine NEG (NEG); Leukocyte Esterase,Urine 25 /uL (NEG); Mucus,Urine FEW /hpf (0); Nitrate,Urine NEG (NEG); Protein,Urine NEG (NEG); Specific Gravity,Urine 1.013 (1.000-1.035); Urine Blood NEG mg/dL (<0.03); Urine RBC 1 /hpf (0-1); Urine Squamous Epithelial Cell < 1 /hpf (0-4); Urine WBC 2 /hpf (0-4); Urobilinogen,Urine NEG (NEG)
[2019-05-24] MEDS: SENNOSIDES/DOCUSATE SODIUM 1 TAB TABLET PO SCH (21:51)
[2019-05-24] MEDS: SIMVASTATIN 20 MG TABLET PO SCH (21:51)
[2019-05-24] MEDS ORDERED: FUROSEMIDE 40 MG/4 ML VIAL IV ONE (22:10)
[2019-05-24] MEDS: FUROSEMIDE 40 MG/4 ML VIAL IV SCH (22:12)
[2019-05-24] MEDS: HYDROcodone/APAP 10/325MG TABLET PO PRN (22:15)
[2019-05-24] MEDS: traZODone HCL 50 MG TABLET PO PRN (23:30)
[2019-05-25] MEDS: TRIAMCINOLONE ACETONIDE TOPICAL SCH (01:45)
[2019-05-25] MEDS: INSULIN LISPRO 1 UNIT/0.01 ML UNIT SQ SCH ×5 (02:13→22:20)
[2019-05-25] MEDS: IPRATROPIUM/ALBUTEROL 3 ML AMPUL.NEB NEB SCH ×6 (02:13→23:12)
[2019-05-25] MEDS: methylPREDNISolone SOD SUCC 125 MG/2 ML VIAL IV SCH ×2 (05:31→13:47)
[2019-05-25] MEDS: PIPERACILLIN SODIUM/TAZOBACTAM 3.375 GM in DEXTROSE 5% IN WATER 50 ML IV SCH (05:31)
[2019-05-25] MEDS: 0.9 % SODIUM CHLORIDE 10 ML SYRINGE IV SCH ×3 (05:32→22:21)
[2019-05-25 05:49] LABS: Hematocrit 34.5 % (41.0-55.0); Hemoglobin 11.2 g/dL (13.5-16.5); Mean Cell Volume 100.1 fL (80.0-100.0); Mean Corpuscular HGB Conc 32.4 g/dL (31.0-36.0); Mean Platelet Volume 7.5 fL (7.4-10.4); Platelet Count 202 K/mcL (140-440); RBC 3.44 M/mcL (4.50-5.90); Red Cell Distribution Width 16.5 % (11.5-14.5); WBC 18.6 K/mcL (4.5-11.0)
[2019-05-25 05:58] LABS: ALT/SGPT 13 U/l (0-40); AST/SGOT 15 U/l (0-37); Albumin 3.3 gm/dL (3.2-5.2); Albumin/Globulin Ratio 0.9 (1.0-2.3); Alkaline Phosphatase 90 U/L (39-117); Bilirubin,Direct < 0.2 mg/dL (0.0-0.3); Bilirubin,Total 0.4 mg/dL (0.0-1.0); Blood Urea Nitrogen 50 mg/dl (8-23); Calcium 9.2 mg/dl (8.6-10.4); Carbon Dioxide 24 mmol/L (22-30); Chloride 92 mmol/L (96-108); Globulin 3.8 gm/dL (2.2-3.7); Glomerular Filtration Rate 24; Glucose 348 mg/dL (70-105); Lactate Dehydrogenase 159 U/L (94-250); Phosphorous 2.8 mg/dL (2.7-4.5); Triglycerides 48 mg/dl (<150); Uric Acid 4.7 mg/dL (2.5-8.0)
[2019-05-25 05:59] LABS: Prothrombin Time 30.8 sec (11.9-14.5)
[2019-05-25 07:21] LABS: Anisocytosis 1+ (NONE SEEN); Band Neutrophils % 5 % (0-10); Lymphocytes % 1 % (15-49); Macrocytosis 1+ (NONE SEEN); Monocytes % (Manual) 3 % (1-12); Platelet Estimate NORMAL (NORMAL); RBC Morphology ABNORM (NORMAL); Segmented Neutrophils % 91 % (38-78)
--- NOTE | 2019-05-25 08:11 | XRay Report ---
HISTORY: Follow-up pleural effusions and pulmonary consolidation FINDINGS: There is a moderate to large left-sided pleural effusion and small right-sided effusion. There is dense consolidation of the left lower lobe and lingula with milder consolidation in the right lower lobe and right middle lobe. There is relative sparing of the upper lobes. The heart is partially obscured by the consolidation but I suspect it is enlarged. Comparison with the prior exam from 05/23/19 shows increasing consolidation in both lungs. IMPRESSION: Worsening atelectasis and/or pneumonia in both lungs Enlarging left-sided pleural effusion and stable right-sided pleural effusion Interpreted and Authenticated by: Bautista Vidal 05/25/19
[2019-05-25] MEDS: glipiZIDE 5 MG TABLET PO SCH (08:14)
[2019-05-25] MEDS: LEVOTHYROXINE 25 MCG TABLET PO SCH (08:14)
[2019-05-25] MEDS: LEVOTHYROXINE SODIUM 112 MCG TABLET PO SCH (08:14)
[2019-05-25] MEDS: BUDESONIDE 0.5 MG/2 ML AMPUL.NEB NEB SCH ×2 (08:26→19:27)
[2019-05-25] MEDS ORDERED: LEVOFLOXACIN 750 MG/150 ML BAG IV SCH (09:00)
--- NOTE | 2019-05-25 09:35 | Internal Med Progress Note ---
Medical - PN: Subj Patient information: Note initiated : 05/25/19 at 9:33 am Service Date, if different from initiated Date: [] Patient: Jeramy French a 83 y/o M admitted on 05/23/19 for SOB for 3 weeks. Chief Complaint: [] Interval history: Mr. French is a 83 year old M with a history of chronic disease stage I V/CAD/CHF/a flutter on anticoagulation presents to the ER with roughly 1 month onset of dyspnea, weakness fatigue and inability to function. Patient has noted progressive weight gain involving lower extremity along with gradual distention of abdomen. But he denies abdominal pain. His shortness of breath has progressed from maximal exertion to dyspnea at rest. He has not been able to get a restful sleep over the last couple of weeks. He is markedly orthopneic. He presents today with a combination of above symptoms. Initial work-up was consistent with severe hypoxia requiring 4 L oxygen. Patient was started on noninvasive ventilation after imaging showed bibasilar pneumonia/pleural effusion and blood gas consistent with hypoxia. Patient was started on antibiotic coverage and Solu-Medrol and subsequently hospitalist service was consulted. After evaluation patient is alert and oriented. He was able to answer most of the question. He is unable to talk in full sentences. No family members are present. He denies recent sick contacts. He denies fever chills but endorses to nonproductive cough that has progressed. He has not seen a primary care physician since the symptoms began. Other than that he denies diarrhea, dysuria, rash, joint pain, unilateral weakness, fainting spells or vertigo. 05/24-patient seen in room along with daughter. Feels a lot better. Overnight on BiPAP. Breathing a lot better. No telemetry events. paced rhythm, White count 9.5. Diuresing. Distended abdomen. Unable to talk in full sentences. Continuing antibiotic coverage on Zosyn and Levaquin. 05/25-patient doing well. Off BiPAP. ABG 7.43/30 7/64. On 2 L oxygen. Echocardiogram unremarkable with normal EF. CT chest pending. Abdominal ultrasound no evidence of mass lesion/ascites. X-ray chest worsening atelectasis/pneumonia bilateral lungs. Continue antibiotic coverage. Await ST eval. Continue aspiration precaution. White count at 18.6. INR 3. Creatinine 2.4. No overnight fever chills. - Constitutional Vitals: Vital Signs Temp Pulse Resp BP Pulse Ox 97.7 F 67 16 121/56 92 05/25/19 03:50 05/25/19 08:32 05/25/19 08:32 05/25/19 03:50 05/25/19 04:14 Period Temp Pulse Resp BP Sys/[place] Pulse Ox Last 24 Hr 97.7 F-98.4 F 64-88 16-24 88-121/43-56 91-98 Intake and Output 05/24/19 05/25/19 05/25/19 21:59 05:59 13:59 Intake Total 600 530 400 Output Total 650 200 Balance -50 330 400 Weight 230 lb 6.4 oz Intake & Output: Intake & Output 05/24/19 05/25/19 05/25/19 21:59 05:59 13:59 Intake Total 600 530 400 Output Total 650 200 Balance -50 330 400 Weight 230 lb 6.4 oz Intake: IV 50 50 Zosyn 3.375 gm In Dextrose 5% 50 50 in Water 50 ml @ 100 mls/hr IV Q6H [facility] Rx#:[id number] Oral 550 480 400 Output: Void Amount 650 200 Other: Meal Breakfast Percent of Meal Consumed 100% Urine Appearance Clear Clear Urine Color Straw Bright Yellow Urine Odor Normal Normal General appearance: morbidly obese, no acute distress Exam: Short of breath Labored breathing Occiput depression on head exam No ear nose discharge Diminished breath sounds bilateral bases/absent BS posterior chest right side Telemetry paced rhythm Medical - PN: Obj Da - Labs CBC & Chem 7: 05/25/19 03:30 05/25/19 03:30 Labs: Abnormal Lab Results 05/25/19 05/25/19 05/25/19 03:30 03:30 03:30 WBC 18.6 H RBC 3.44 L Hgb 11.2 L Hct 34.5 L MCV 100.1 H RDW 16.5 H MPV Gran % Lymph % (Auto) Gran # Lymph # (Auto) Seg Neutrophils % 91 H Lymphocytes % 1 L RBC Morphology Abnorm A Anisocytosis 1+ A Macrocytosis 1+ A ESR PT 30.8 H INR 3.0 H VBG Lactic Acid Sodium 132 L Chloride 92 L BUN 50 H Creatinine 2.4 H Glucose 348 H Troponin T C-Reactive Protein NT-Pro-B Natriuret Pep Globulin 3.8 H Albumin/Globulin Ratio 0.9 L Urine Glucose (UA) Ur Leukocyte Esterase 05/24/19 05/24/19 05/24/19 16:00 07:06 03:45 WBC RBC Hgb Hct MCV RDW MPV Gran % Lymph % (Auto) Gran # Lymph # (Auto) Seg Neutrophils % Lymphocytes % RBC Morphology Anisocytosis Macrocytosis ESR PT 29.1 H INR 2.8 H VBG Lactic Acid 2.1 H Sodium Chloride BUN Creatinine Glucose Troponin T C-Reactive Protein NT-Pro-B Natriuret Pep Globulin Albumin/Globulin Ratio Urine Glucose (UA) >=500 A Ur Leukocyte Esterase 25 A 05/24/19 05/24/19 05/23/19 03:45 03:45 17:34 WBC RBC 3.57 L Hgb 11.5 L Hct 36.0 L MCV 100.9 H RDW 16.6 H MPV 7.0 L Gran % Lymph % (Auto) Gran # Lymph # (Auto) Seg Neutrophils % Lymphocytes % 10 L RBC Morphology Abnorm A Anisocytosis 1+ A Macrocytosis 1+ A ESR PT INR VBG Lactic Acid Sodium Chloride 94 L BUN 44 H Creatinine 2.2 H Glucose 232 H Troponin T 0.08 H* C-Reactive Protein NT-Pro-B Natriuret Pep Globulin 3.9 H Albumin/Globulin Ratio 0.8 L Urine Glucose (UA) Ur Leukocyte Esterase 05/23/19 05/23/19 05/23/19 17:34 17:34 17:31 WBC RBC 4.03 L Hgb 12.8 L Hct 40.2 L MCV RDW 16.5 H MPV 7.1 L Gran % 79.3 H Lymph % (Auto) 10.2 L Gran # 8.4 H Lymph # (Auto) 1.1 L Seg Neutrophils % Lymphocytes % RBC Morphology Anisocytosis Macrocytosis ESR PT INR VBG Lactic Acid Sodium 131 L Chloride 89 L BUN 43 H Creatinine 2.1 H Glucose 167 H Troponin T C-Reactive Protein 2.7 H NT-Pro-B Natriuret Pep 664.0 H Globulin 4.4 H Albumin/Globulin Ratio 0.9 L Urine Glucose (UA) Ur Leukocyte Esterase 05/23/19 05/23/19 17:31 16:18 WBC RBC Hgb Hct MCV RDW MPV Gran % Lymph % (Auto) Gran # Lymph # (Auto) Seg Neutrophils % Lymphocytes % RBC Morphology Anisocytosis Macrocytosis ESR 95 H PT INR VBG Lactic Acid 2.3 H Sodium Chloride BUN Creatinine Glucose Troponin T C-Reactive Protein NT-Pro-B Natriuret Pep Globulin Albumin/Globulin Ratio Urine Glucose (UA) Ur Leukocyte Esterase Meds: Medications Acetaminophen (Tylenol) 650 mg PO Q4-6HP PRN PRN Reason: PAIN/FEVER > 101 Hydrocodone Bitart/Acetaminophen ([place] 10/325mg) 1 tab PO Q6H PRN PRN Reason: pain Last Admin: 05/24/19 22:15 Dose: 1 tab Documented by: Albuterol/Ipratropium (Duoneb) 3 ml NEB Q4HRT [facility] Last Admin: 05/25/19 08:26 Dose: 3 ml Documented by: Allopurinol (Zylopriim) 300 mg PO QDAY [facility] Last Admin: 05/24/19 10:15 Dose: 300 mg Documented by: Bisoprolol Fumarate (Zebeta) 5 mg PO QDAY [facility] Last Admin: 05/24/19 09:51 Dose: 5 mg Documented by: Budesonide (Pulmicort) 0.5 mg NEB Q12 [facility] Last Admin: 05/25/19 08:26 Dose: 0.5 mg Documented by: Calcitriol (Rocaltrol) 0.25 mcg PO QDAY [facility] Last Admin: 05/24/19 09:51 Dose: 0.25 mcg Documented by: Colchicine (Colcrys) 0 mg PO UD PRN PRN Reason: GOUT Last Admin: 05/24/19 09:59 Dose: 1.2 mg Documented by: Cyanocobalamin (Vitamin B-12) 1,000 mcg PO BID [facility] Stop: 05/28/19 09:01 Last Admin: 05/24/19 21:51 Dose: 1,000 mcg Documented by: Dextrose (Dextrose 50%) 0 ml IV UD PRN PRN Reason: Hypoglycemia Diagnostic Test (Pha) (Accu-Chek) 1 each FS ACHS [facility] Last Admin: 05/25/19 08:13 Dose: 1 each Documented by: Docusate Sodium (Colace) 100 mg PO BID [facility] Last Admin: 05/24/19 21:51 Dose: 100 mg Documented by: Folic Acid (Folic Acid) 1 mg PO DAILY [facility] Last Admin: 05/24/19 09:52 Dose: 1 mg Documented by: Furosemide (Lasix) 40 mg IV BID [facility] Last Admin: 05/24/19 22:12 Dose: Not Given Documented by: Gabapentin (Neurontin) 300 mg PO QDAY [facility] Last Admin: 05/24/19 09:52 Dose: 300 mg Documented by: Glipizide (Glucotrol) 15 mg PO QAMAC [facility] Last Admin: 05/25/19 08:14 Dose: 15 mg Documented by: Glucose (Insta-Glucose) 15 gm PO PRN PRN PRN Reason: Hypoglycemia Guaifenesin/Codeine Phosphate (Robitussin Ac) 10 ml PO Q4HP PRN PRN Reason: Cough Hydralazine HCl (Apresoline) 10 mg IV Q4-6HP PRN PRN Reason: Hypertension Acetaminophen (Ofirmev) 1,000 mg in 100 mls @ 200 mls/hr IV Q6HP PRN PRN Reason: PAIN/FEVER > 101 Magnesium Sulfate (Magnesium Sulfate) 2 gm in 50 mls @ 50 mls/hr IV UD PRN PRN Reason: MG = or < 1.7 Piperacillin Sod/Tazobactam (Sod 2.25 gm/ Dextrose) 50 mls @ 100 mls/hr IV Q6H [facility]; Protocol Insulin Human Lispro (Humalog) 0 unit SQ [facility]; Protocol Last Admin: 05/25/19 08:14 Dose: 4 units Documented by: Iron Carb/Multivit/Clinical Counselor/Folic Acid (Multivitamin W/Minerals) 1 tab PO DAILY [facility] Last Admin: 05/24/19 09:51 Dose: 1 tab Documented by: [facility]ine [facility]) [facility] Admin: 05/25/19 08:14 Dose: 112 mcg Documented by: Levothyroxine Sodium (Synthroid) 25 mcg PO QAMAC [facility] Last Admin: 05/25/19 08:14 Dose: 25 mcg Documented by: Methylprednisolone Sodium Succinate (Solu-Medrol) 60 mg IV Q6 [facility] Last Admin: 05/25/19 05:31 Dose: 60 mg Documented by: Multivitamins/Minerals (Ocuvite) 1 tab PO DAILY [facility] Last Admin: 05/24/19 09:51 Dose: 1 tab Documented by: Ondansetron HCl (Zofran) 4 mg IV Q4-6HP PRN PRN Reason: Nausea And Vomiting Diamanteo Ellipta 200-25 (Mcg Inh) 1 dose INH Q24H [facility] Last Admin: 05/24/19 13:27 Dose: Not Given Documented by: Heather Goldsmith] 1 (Inh) 1 dose INH Q24H [facility] Last Admin: 05/24/19 13:28 Dose: Not Given Documented by: Triamcinolone Acetonide 0.1% Ointment 1 dose TOPICAL BID [facility] Last Admin: 05/25/19 08:15 Dose: 1 dose Documented by: Potassium Chloride (Klor-Con) 40 meq PO DAILYP PRN PRN Reason: K+ < 3.5 Senna/Docusate Sodium (Senna Plus Tablet) 1 tab PO HS [facility] Last Admin: 05/24/19 21:51 Dose: 1 tab Documented by: Simvastatin (Zocor) 20 mg PO QPM [facility] Last Admin: 05/24/19 21:51 Dose: 20 mg Documented by: Sitagliptin Phosphate (Januvia) 50 mg PO QDAY [facility] Last Admin: 05/24/19 09:51 Dose: 50 mg Documented by: Sodium Chloride (Saline Flush) 10 ml IV Q8 [facility] Last Admin: 05/25/19 05:32 Dose: 10 ml Documented by: Tamsulosin HCl (Flomax) 0.4 mg PO QDAY [facility] Last Admin: 05/24/19 09:52 Dose: 0.4 mg Documented by: Thiamine HCl (Vitamin B1) 100 mg PO DAILY [facility] Last Admin: 05/24/19 09:52 Dose: 100 mg Documented by: Trazodone HCl (Desyrel) 50 mg PO HSP PRN PRN Reason: Insomnia Last Admin: 05/24/19 23:30 Dose: 50 mg Documented by: Warfarin Sodium (Coumadin Per Pharmacy) 1 order PO DAILY@1400 [facility] Last Admin: 05/24/19 14:26 Dose: Not Given Documented by: Medical - PN: A/P - Time Spent With Patient Total time spent is greater than 50% in coordination of care (as documented) at patient's floor/unit and/or counseling patient: 25 - 35 minutes (1) Bilateral pneumonia Status: Acute Assessment and plan: * Bilateral pneumonia-suspect aspiration. Worsening or interval chest imaging. Await chest CT. Continue Zosyn/aspiration precautions/ST eval for diet recommendations * COPD exacerbation clinically improving on bronchodilators/IV steroids/pulmonary toilet and supplemental oxygen * Hypoxic resp failure-currently on 2 L oxygen. Off noninvasive ventilation. ABG 7.43/30 764 on 3 L oxygen. Worsening interval chest imaging with bilateral pneumonia * H/o CHF-with associated pleural effusion. Continue beta-alicia/diuretics. Echo normal EF/no evidence of pulmonary hypertension * DMII-basal prandial insulin/sitagliptin * Gout-no acute flare. Continue Colchicine * CKD stage 4-continue monitoring. Creatinine 2.4. * Aflutter/ Afib rate controlled on beta-alicia. Paced rhythm. * Anticoagulation for CVA prophylaxis. INR therapeutic at 3 * Prosthetic aortic valve. * Neuropathy stable on gabapentin * Hypothyroidism continue thyroxine * Hyperlipidemia continue statin * BPH continue tamsulosin * Prophylaxis on Coumadin Plan * ST eval/aspiration precaution * CT chest * Antibiotic coverage * Bronchodilators/antibiotics/steroids/pulmonary toilet * PT OT * Nutrition support * Case management to coordinate discharge planning likely SNF Current Visit: Yes Medical - PN: Qual - VTE Deep Vein Thrombosis/Pulmonary Embolism Present on Admission: No
[2019-05-25] MEDS: GABAPENTIN 300 MG CAPSULE PO SCH (10:07)
[2019-05-25] MEDS: BISOPROLOL 5 MG TABLET PO SCH (10:07)
[2019-05-25] MEDS: DOCUSATE SODIUM 100 MG CAPSULE PO SCH ×2 (10:07→22:22)
[2019-05-25] MEDS: CALCITRIOL 0.25 MCG CAPSULE PO SCH (10:08)
[2019-05-25] MEDS: ALLOPURINOL 300 MG TABLET PO SCH (10:08)
[2019-05-25] MEDS: FOLIC ACID 1 MG TABLET PO SCH (10:08)
[2019-05-25] MEDS: VIT A,C & E/LUTEIN/MINERALS TABLET PO SCH (10:08)
[2019-05-25] MEDS: FUROSEMIDE 40 MG/4 ML VIAL IV SCH ×2 (10:08→22:21)
[2019-05-25] MEDS: sitaGLIPtin 50 MG TABLET PO SCH (10:13)
[2019-05-25] MEDS: MULTIVIT,THER IRON,CA,FA & MIN 1 TABLET PO SCH (10:13)
--- NOTE | 2019-05-25 10:16 | Cat Scan Report ---
History: Skull depression and prior transient ischemic attack TECHNIQUE: The brain was imaged without contrast at 2.5 mm intervals. Sagittal and coronal reformats are created. The radiation exposure was limited using dose reduction technology. FINDINGS: Both parietal bones are abnormally thin. There is no depressed skull fracture. The remaining portions of the parietal bones do not appear to be infiltrated. The thinning of the parietal bones is a new [place] [address]. Has there been prior head surgery? The remainder of the calvarium appears normal with no other evidence of loss of bone. The underlying brain parenchyma is normal. There is no thickening or inflammation of the scalp and no dural thickening. 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 It measures approximately 2.6 x 3.6 cm in size. It has enlarged a couple millimeter since 2002. This is in a watershed distribution. There is also a large old lacunar infarct with encephalomalacia in the head of the right caudate nucleus. This has remained stable. A small lacunar infarct with encephalomalacia is seen in the head of the left caudate nucleus which has developed since 2002, but is not acute. There is no intracranial hemorrhage or cerebral edema. Patient has developed mild to moderate generalized cerebral atrophy which has progressed since 2002. The ventricles are prominent but proportionate to the atrophy. No abnormal extra-axial fluid collection is present. There are scattered calcified plaques in the cavernous portions of both internal carotids and the vertebral arteries at the level of the foramen magnum. IMPRESSION: Unexplained loss of the diploic space and outer table of both parietal bones There is no depression. 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
[2019-05-25] MEDS: CYANOCOBALAMIN (VITAMIN B-12) 500 MCG TABLET PO SCH ×2 (10:17→22:23)
[2019-05-25] MEDS: TAMSULOSIN 0.4 MG CAPSULE PO SCH (10:18)
[2019-05-25] MEDS: THIAMINE 100 MG TABLET PO SCH (10:19)
[2019-05-25] MEDS: INCRUSE ELLIPTA INH SCH (10:19)
--- NOTE | 2019-05-25 10:30 | Cat Scan Report ---
History: Increasing shortness of breath, pleural effusions and pulmonary consolidation seen on chest x-ray TECHNIQUE: The chest was imaged without contrast at 2.5 mm intervals. Sagittal, coronal and axial MIPS images were created. The radiation exposure was limited using dose reduction technology. FINDINGS: Patient has a large layering left-sided pleural effusion. There is complete consolidation of the left lower lobe and near complete consolidation of the lingula. There is a small layering right-sided pleural effusion and partial consolidation of the posterior basilar segments of the right lower lobe. Within the basilar segments of both lower lobes are multiple punctate high attenuation lesions measuring only a few millimeters in size. They are less radiopaque than the numerous calcified pleural plaques which surrounds both lungs. A clearly defined tumor in the lung or pleura is not identified. Patient has emphysema in both upper lobes. There are bands of discoid atelectasis or scar in the right middle lobe. There are sternal wires following prior sternotomy. The heart is mildly enlarged. There has been prior coronary bypass surgery. [place] coronary arteries are densely calcified. There is a prosthetic aortic valve. No pericardial effusion is present. There is severe gynecomastia bilaterally. The aorta is normal caliber there are densely calcified plaques along the wall of the aorta and the great vessels. There is degenerative arthritis throughout the thoracic spine. No lytic or blastic bone metastasis are seen. IMPRESSION: Large left-sided pleural effusion and small right-sided pleural effusion Complete atelectasis of the left lower lobe and most of the lingula Numerous calcified pleural plaques surrounding both lungs. This is usually associated with prior asbestos exposure Multiple focal punctate high attenuation structures in both lung bases. This could be aspirated material such as barium or an antacid. Calcifications in the lung parenchyma are rare unless associated with granulomatous disease. Mesothelioma usually does not present with these findings. Emphysema Advanced atherosclerotic disease Interpreted and Authenticated by: Bautista Vidal 05/25/19
--- NOTE | 2019-05-25 13:41 | XRay Report ---
HISTORY: Post left-sided thoracentesis. FINDINGS: there is no pneumothorax following the preceding left-sided thoracentesis. There has been moderate reexpansion of the lingula and superior segment of the left lower lobe since the earlier study done at 6:13 AM on the same date. There is still a small to moderate amount of residual pleural fluid and dense consolidation of the basilar segments in the left lower lobe. There is a stable milder infiltrate in the right lower lobe and small right-sided pleural effusion. IMPRESSION: Improved aeration of the left lung following thoracentesis. No pneumothorax Interpreted and Authenticated by: Bautista Vidal 05/25/19
--- NOTE | 2019-05-25 13:42 | Ultrasound Report ---
CLINICAL INFORMATION: Difficulty breathing with large left-sided pleural effusion TECHNIQUE: Procedure and risks were explained the patient consented. Ultrasound reveals a large left-sided pleural effusion posteriorly and laterally in the left lower thorax. This skin over the left lower chest was prepped with ChloraPrep then anesthetized with 1% lidocaine. Using ultrasound guidance a multi sidehole drainage catheter was inserted. 1.4 L of dark bloody fluid was removed and sent to laboratory for analysis. There is residual fluid present at the end of the procedure. He tolerated the procedure well without complication. IMPRESSION: Successful left-sided thoracentesis removing 1.4 L of old bloody fluid Interpreted and Authenticated by: Bautista Vidal 05/25/19
[2019-05-25] MEDS: PIPERACILLIN SODIUM/TAZOBACTAM 2.25 GM in DEXTROSE 5% IN WATER 50 ML IV SCH ×3 (13:47→23:55)
--- NOTE | 2019-05-25 14:28 | Internal Med Progress Note ---
Medical - PN: Subj Patient information: Note initiated : 05/25/19 at 2:10 pm Service Date, if different from initiated Date: [] Patient: Jeramy French a 83 y/o M admitted on 05/23/19 for SOB for 3 weeks. Chief Complaint: [] Interval history: Mr. French is a 83 year old M with a history of chronic disease stage I V/CAD/CHF/a flutter on anticoagulation presents to the ER with roughly 1 month onset of dyspnea, weakness fatigue and inability to function. Patient has noted progressive weight gain involving lower extremity along with gradual distention of abdomen. But he denies abdominal pain. His shortness of breath has progressed from maximal exertion to dyspnea at rest. He has not been able to get a restful sleep over the last couple of weeks. He is markedly orthopneic. He presents today with a combination of above symptoms. Initial work-up was consistent with severe hypoxia requiring 4 L oxygen. Patient was started on noninvasive ventilation after imaging showed bibasilar pneumonia/pleural effusion and blood gas consistent with hypoxia. Patient was started on antibiotic coverage and Solu-Medrol and subsequently hospitalist service was consulted. After evaluation patient is alert and oriented. He was able to answer most of the question. He is unable to talk in full sentences. No family members are present. He denies recent sick contacts. He denies fever chills but endorses to nonproductive cough that has progressed. He has not seen a primary care physician since the symptoms began. Other than that he denies diarrhea, dysuria, rash, joint pain, unilateral weakness, fainting spells or vertigo. 05/24-patient seen in room along with daughter. Feels a lot better. Overnight on BiPAP. Breathing a lot better. No telemetry events. paced rhythm, White count 9.5. Diuresing. Distended abdomen. Unable to talk in full sentences. Continuing antibiotic coverage on Zosyn and Levaquin. 05/25-patient doing well. Off BiPAP. ABG 7.43/30 7/64. On 2 L oxygen. Echocardiogram unremarkable with normal EF. CT chest pending. Abdominal ultrasound no evidence of mass lesion/ascites. X-ray chest worsening atelectasis/pneumonia bilateral lungs. Continue antibiotic coverage. Await ST eval. Continue aspiration precaution. White count at 18.6. INR 3. Creatinine 2.4. No overnight fever chills. - Constitutional Vitals: Vital Signs Temp Pulse Resp BP Pulse Ox 97.7 F 65 16 108/55 91 05/25/19 03:50 05/25/19 11:05 05/25/19 11:05 05/25/19 11:21 05/25/19 11:21 Period Temp Pulse Resp BP Sys/Med[place] Pulse Ox Last 24 Hr 97.7 F-98.4 F 64-88 16-24 88-121/43-56 91-98 Intake and Output 05/25/19 05/25/19 05/25/19 05:59 13:59 21:59 Intake Total 530 640 Output Total 200 Balance 330 640 Intake & Output: Intake & Output 05/25/19 05/25/19 05/25/19 05:59 13:59 21:59 Intake Total 530 640 Output Total 200 Balance 330 640 Intake: IV 50 Zosyn 3.375 gm In Dextrose 5% 50 in Water 50 ml @ 100 mls/hr IV Q6H [facility] Rx#:[id number] Oral 480 640 Output: Void Amount 200 Other: Meal Breakfast Percent of Meal Consumed 100% Urine Appearance Clear Urine Color Bright Yellow Urine Odor Normal Exam: General: Alert, Awake, No acute Distress Eyes/N/T: EOMI, Head/Neck: neck supple, CV: RRR, No murmurs, Pulm: Abd: soft, nontender, +BS x4 Ext: no clubbing/cyanosis/edema Neuro: Alert, no focal deficits, moves all extremities, Skin: warm/dry Medical - PN: Obj Da - Labs CBC & Chem 7: 05/25/19 03:30 05/25/19 03:30 Labs: Abnormal Lab Results 05/25/19 05/25/19 05/25/19 03:30 03:30 03:30 WBC 18.6 H RBC 3.44 L Hgb 11.2 L Hct 34.5 L MCV 100.1 H RDW 16.5 H MPV Gran % Lymph % (Auto) Gran # Lymph # (Auto) Seg Neutrophils % 91 H Lymphocytes % 1 L RBC Morphology Abnorm A Anisocytosis 1+ A Macrocytosis 1+ A ESR PT 30.8 H INR 3.0 H VBG Lactic Acid Sodium 132 L Chloride 92 L BUN 50 H Creatinine 2.4 H Glucose 348 H Troponin T C-Reactive Protein NT-Pro-B Natriuret Pep Globulin 3.8 H Albumin/Globulin Ratio 0.9 L Urine Glucose (UA) Ur Leukocyte Esterase 05/24/19 05/24/19 05/24/19 16:00 07:06 03:45 WBC RBC Hgb Hct MCV RDW MPV Gran % Lymph % (Auto) Gran # Lymph # (Auto) Seg Neutrophils % Lymphocytes % RBC Morphology Anisocytosis Macrocytosis ESR PT 29.1 H INR 2.8 H VBG Lactic Acid 2.1 H Sodium Chloride BUN Creatinine Glucose Troponin T C-Reactive Protein NT-Pro-B Natriuret Pep Globulin Albumin/Globulin Ratio Urine Glucose (UA) >=500 A Ur Leukocyte Esterase 25 A 05/24/19 05/24/19 05/23/19 03:45 03:45 17:34 WBC RBC 3.57 L Hgb 11.5 L Hct 36.0 L MCV 100.9 H RDW 16.6 H MPV 7.0 L Gran % Lymph % (Auto) Gran # Lymph # (Auto) Seg Neutrophils % Lymphocytes % 10 L RBC Morphology Abnorm A Anisocytosis 1+ A Macrocytosis 1+ A ESR PT INR VBG Lactic Acid Sodium Chloride 94 L BUN 44 H Creatinine 2.2 H Glucose 232 H Troponin T 0.08 H* C-Reactive Protein NT-Pro-B Natriuret Pep Globulin 3.9 H Albumin/Globulin Ratio 0.8 L Urine Glucose (UA) Ur Leukocyte Esterase 05/23/19 05/23/19 05/23/19 17:34 17:34 17:31 WBC RBC 4.03 L Hgb 12.8 L Hct 40.2 L MCV RDW 16.5 H MPV 7.1 L Gran % 79.3 H Lymph % (Auto) 10.2 L Gran # 8.4 H Lymph # (Auto) 1.1 L Seg Neutrophils % Lymphocytes % RBC Morphology Anisocytosis Macrocytosis ESR PT INR VBG Lactic Acid Sodium 131 L Chloride 89 L BUN 43 H Creatinine 2.1 H Glucose 167 H Troponin T C-Reactive Protein 2.7 H NT-Pro-B Natriuret Pep 664.0 H Globulin 4.4 H Albumin/Globulin Ratio 0.9 L Urine Glucose (UA) Ur Leukocyte Esterase 05/23/19 05/23/19 17:31 16:18 WBC RBC Hgb Hct MCV RDW MPV Gran % Lymph % (Auto) Gran # Lymph # (Auto) Seg Neutrophils % Lymphocytes % RBC Morphology Anisocytosis Macrocytosis ESR 95 H PT INR VBG Lactic Acid 2.3 H Sodium Chloride BUN Creatinine Glucose Troponin T C-Reactive Protein NT-Pro-B Natriuret Pep Globulin Albumin/Globulin Ratio Urine Glucose (UA) Ur Leukocyte Esterase Meds: Medications Acetaminophen (Tylenol) 650 mg PO Q4-6HP PRN PRN Reason: PAIN/FEVER > 101 Hydrocodone Bitart/Acetaminophen ([place] 10/325mg) 1 tab PO Q6H PRN PRN Reason: pain Last Admin: 05/24/19 22:15 Dose: 1 tab Documented by: Albuterol/Ipratropium (Duoneb) 3 ml NEB Q4HRT [facility] Last Admin: 05/25/19 11:01 Dose: 3 ml Documented by: Allopurinol (Zylopriim) 300 mg PO QDAY [facility] Last Admin: 05/25/19 10:08 Dose: 300 mg Documented by: Bisoprolol Fumarate (Zebeta) 5 mg PO QDAY [facility] Last Admin: 05/25/19 10:07 Dose: 5 mg Documented by: Budesonide (Pulmicort) 0.5 mg NEB Q12 [facility] Last Admin: 05/25/19 08:26 Dose: 0.5 mg Documented by: Calcitriol (Rocaltrol) 0.25 mcg PO QDAY [facility] Last Admin: 05/25/19 10:08 Dose: 0.25 mcg Documented by: Colchicine (Colcrys) 0 mg PO UD PRN PRN Reason: GOUT Last Admin: 05/24/19 09:59 Dose: 1.2 mg Documented by: Cyanocobalamin (Vitamin B-12) 1,000 mcg PO BID [facility] Stop: 05/28/19 09:01 Last Admin: 05/25/19 10:17 Dose: 1,000 mcg Documented by: Dextrose (Dextrose 50%) 0 ml IV UD PRN PRN Reason: Hypoglycemia Diagnostic Test (Pha) (Accu-Chek) 1 each FS ACHS [facility] Last Admin: 05/25/19 13:42 Dose: 1 each Documented by: Docusate Sodium (Colace) 100 mg PO BID [facility] Last Admin: 05/25/19 10:07 Dose: 100 mg Documented by: Folic Acid (Folic Acid) 1 mg PO DAILY [facility] Last Admin: 05/25/19 10:08 Dose: 1 mg Documented by: Furosemide (Lasix) 40 mg IV BID [facility] Last Admin: 05/25/19 10:08 Dose: 40 mg Documented by: Gabapentin (Neurontin) 300 mg PO QDAY [facility] Last Admin: 05/25/19 10:07 Dose: 300 mg Documented by: Glipizide (Glucotrol) 15 mg PO QAMAC [facility] Last Admin: 05/25/19 08:14 Dose: 15 mg Documented by: Glucose (Insta-Glucose) 15 gm PO PRN PRN PRN Reason: Hypoglycemia Guaifenesin/Codeine Phosphate (Robitussin Ac) 10 ml PO Q4HP PRN PRN Reason: Cough Hydralazine HCl (Apresoline) 10 mg IV Q4-6HP PRN PRN Reason: Hypertension Acetaminophen (Ofirmev) 1,000 mg in 100 mls @ 200 mls/hr IV Q6HP PRN PRN Reason: PAIN/FEVER > 101 Magnesium Sulfate (Magnesium Sulfate) 2 gm in 50 mls @ 50 mls/hr IV UD PRN PRN Reason: MG = or < 1.7 Piperacillin Sod/Tazobactam (Sod 2.25 gm/ Dextrose) 50 mls @ 100 mls/hr IV Q6H [facility]; Protocol Last Admin: 05/25/19 13:47 Dose: 100 mls/hr Documented by: Insulin Human Lispro (Humalog) 0 unit SQ ACHS [facility]; Protocol Last Admin: 05/25/19 13:46 Dose: 6 units Documented by: Iron Carb/Multivit/[place]/Folic Acid (Multivitamin W/Minerals) 1 tab PO DAILY [facility] Last Admin: 05/25/19 10:13 Dose: 1 tab Documented by: Levothyroxine [facility] ([facility]throid) [facility] Last Admin: 05/25/19 08:14 Dose: 112 mcg Documented by: Levothyroxine Sodium (Synthroid) 25 mcg PO QAMAC [facility] Last Admin: 05/25/19 08:14 Dose: 25 mcg Documented by: Methylprednisolone Sodium Succinate (Solu-Medrol) 60 mg IV Q6 [facility] Last Admin: 05/25/19 13:47 Dose: 60 mg Documented by: Multivitamins/Minerals (Ocuvite) 1 tab PO DAILY [facility] Last Admin: 05/25/19 10:08 Dose: 1 tab Documented by: Ondansetron HCl (Zofran) 4 mg IV Q4-6HP PRN PRN Reason: Nausea And Vomiting Gracie Ellipta 200-25 (Mcg Inh) 1 dose INH Q24H [facility] Last Admin: 05/25/19 10:18 Dose: Not Given Documented by: Heather Goldsmith] 1 (Inh) 1 dose INH Q24H [facility] Last Admin: 05/25/19 10:19 Dose: Not Given Documented by: Triamcinolone Acetonide 0.1% Ointment 1 dose TOPICAL BID [facility] Last Admin: 05/25/19 08:15 Dose: 1 dose Documented by: Potassium Chloride (Klor-Con) 40 meq PO DAILYP PRN PRN Reason: K+ < 3.5 Senna/Docusate Sodium (Senna Plus Tablet) 1 tab PO HS [facility] Last Admin: 05/24/19 21:51 Dose: 1 tab Documented by: Simvastatin (Zocor) 20 mg PO QPM [facility] Last Admin: 05/24/19 21:51 Dose: 20 mg Documented by: Sitagliptin Phosphate (Januvia) 50 mg PO QDAY [facility] Last Admin: 05/25/19 10:13 Dose: 50 mg Documented by: Sodium Chloride (Saline Flush) 10 ml IV Q8 [facility] Last Admin: 05/25/19 05:32 Dose: 10 ml Documented by: Tamsulosin HCl (Flomax) 0.4 mg PO QDAY [facility] Last Admin: 05/25/19 10:18 Dose: 0.4 mg Documented by: Thiamine HCl (Vitamin B1) 100 mg PO DAILY [facility] Last Admin: 05/25/19 10:19 Dose: 100 mg Documented by: Trazodone HCl (Desyrel) 50 mg PO HSP PRN PRN Reason: Insomnia Last Admin: 05/24/19 23:30 Dose: 50 mg Documented by: Warfarin Sodium (Coumadin Per Pharmacy) 1 order PO DAILY@1400 [facility] Last Admin: 05/24/19 14:26 Dose: Not Given Documented by: Medical - PN: A/P - Time Spent With Patient Total time spent is greater than 50% in coordination of care (as documented) at patient's floor/unit and/or counseling patient: - Narrative A/P Narrative: A: *PNA -suspect Aspiration: -Worsening on interval chest imaging -Chest CT with Large Left effusion, pleural plaquing, possible. *Large left pleural effusion: -s/p thora of 1400 (05/25) *AECOPD: clinically improving *Hypoxic resp failure: -currently 2L O2, Off noninvasive ventilation *h/o CHF w/pleural effusion: -Echo normal EF, *DMII: *Gout: home Colchicine *CKD IV (base Cr ~2.1-2.3) *Aflutter/fib: rate controlled on BB, Paced rhythm. -home warfarin *Prosthetic aortic valve. *h/o of CVA's: *Neuropathy: on gabapentin *Hypothyroidism: on thyroxine *HLD: on statin *BPH: on tamsulosin Plan: -ST eval/aspiration precaution -Zosyn -Antibiotic coverage -bronchodilators/IV steroids(wean)/pulmonary toilet and supplemental oxygen -cytology pending on pleural fluid and other labs -IV lasix -Continue BB -cont SSI/sitagliptin - -PT OT -Nutrition support -Case management to coordinate discharge planning likely SNF -ppx: warfarin per pharm Medical - PN: Qual - VTE Deep Vein Thrombosis/Pulmonary Embolism Present on Admission: No
[2019-05-25 14:55] LABS: Appearance,Pleural Fluid BLOODY; Color,Pleural Fluid RED; Nucleated Cells,Pleural Fld 1454 /cumm; RBC,Pleural Fluid > 100000 /cumm
[2019-05-25 15:12] LABS: Glucose,Pleural Fluid 288 mg/dL
[2019-05-25 15:20] LABS: Total Protein,Pleural Fluid 5.1 gm/dL
[2019-05-25 15:35] LABS: Eosinophils,Pleural Fluid 1 %; Lymphocytes,Pleural Fluid 78 %; Macrophages,Pleural Fluid 4 %; Neutrophils,Pleural Fluid 17 %
[2019-05-25] MEDS: HYDROcodone/APAP 10/325MG TABLET PO PRN (22:22)
[2019-05-25] MEDS: SENNOSIDES/DOCUSATE SODIUM 1 TAB TABLET PO SCH (22:22)
[2019-05-25] MEDS: SIMVASTATIN 20 MG TABLET PO SCH (22:23)
[2019-05-25] MEDS: traZODone HCL 50 MG TABLET PO PRN (22:45)
[2019-05-26] MEDS: IPRATROPIUM/ALBUTEROL 3 ML AMPUL.NEB NEB SCH ×6 (03:00→22:02)
[2019-05-26] MEDS: PIPERACILLIN SODIUM/TAZOBACTAM 2.25 GM in DEXTROSE 5% IN WATER 50 ML IV SCH (05:59)
[2019-05-26] MEDS: 0.9 % SODIUM CHLORIDE 10 ML SYRINGE IV SCH ×4 (06:00→21:42)
[2019-05-26 06:02] LABS: Hemoglobin 11.3 g/dL (13.5-16.5); INR 3.5 (0.9-1.1); Mean Cell Volume 100.1 fL (80.0-100.0); Mean Corpuscular HGB Conc 32.3 g/dL (31.0-36.0); Mean Platelet Volume 7.1 fL (7.4-10.4); Platelet Count 201 K/mcL (140-440); Prothrombin Time 34.5 sec (11.9-14.5); Red Cell Distribution Width 16.8 % (11.5-14.5); WBC 18.7 K/mcL (4.5-11.0)
[2019-05-26 07:17] LABS: Basophils # (Auto) 0 K/mcL (0.0-0.3); Basophils % (Auto) 0.1 % (0.0-2.0); Eosinophils # (Auto) 0 K/mcL (0.0-0.7); Eosinophils % (Auto) 0.1 % (0.0-7.0); Hematocrit 33.3 % (41.0-55.0); Hemoglobin 10.8 g/dL (13.5-16.5); Lymphocytes # (Auto) 0.3 K/mcL (1.5-4.8); Lymphocytes % (Auto) 1.5 % (15.5-49.0); Mean Cell Volume 99.5 fL (80.0-100.0); Mean Corpuscular HGB Conc 32.5 g/dL (31.0-36.0); Monocytes # (Auto) 0.5 K/mcL (0.1-0.9); Monocytes % (Auto) 2.3 % (1.0-12.0); Platelet Count 201 K/mcL (140-440); RBC 3.35 M/mcL (4.50-5.90); Red Cell Distribution Width 16.5 % (11.5-14.5); WBC 20.7 K/mcL (4.5-11.0)
[2019-05-26 07:20] LABS: Anisocytosis 1+ (NONE SEEN); Band Neutrophils % 1 % (0-10); Lymphocytes % 2 % (15-49); Macrocytosis 1+ (NONE SEEN); Monocytes % (Manual) 5 % (1-12); Myelocytes % 1 % (0-0); Ovalocytes RARE (NONE SEEN); Platelet Estimate NORMAL (NORMAL); RBC Morphology ABNORM (NORMAL); Segmented Neutrophils % 91 % (38-78)
[2019-05-26 07:33] LABS: ALT/SGPT 16 U/l (0-40); AST/SGOT 17 U/l (0-37); Albumin 3.2 gm/dL (3.2-5.2); Albumin/Globulin Ratio 0.9 (1.0-2.3); Alkaline Phosphatase 76 U/L (39-117); Bilirubin,Direct < 0.2 mg/dL (0.0-0.3); Bilirubin,Total 0.3 mg/dL (0.0-1.0); Blood Urea Nitrogen 59 mg/dl (8-23); Calcium 8.5 mg/dl (8.6-10.4); Carbon Dioxide 25 mmol/L (22-30); Chloride 88 mmol/L (96-108); Globulin 3.7 gm/dL (2.2-3.7); Glomerular Filtration Rate 23; Glucose 230 mg/dL (70-105); Lactate Dehydrogenase 175 U/L (94-250); Phosphorous 4.9 mg/dL (2.7-4.5); Triglycerides 68 mg/dl (<150); Uric Acid 4.5 mg/dL (2.5-8.0)
[2019-05-26] MEDS: INSULIN LISPRO 1 UNIT/0.01 ML UNIT SQ SCH ×4 (07:59→21:40)
[2019-05-26] MEDS: LEVOTHYROXINE 25 MCG TABLET PO SCH (07:59)
[2019-05-26] MEDS: glipiZIDE 5 MG TABLET PO SCH (07:59)
[2019-05-26] MEDS ORDERED: predniSONE 20 MG TABLET PO SCH ×2 (08:00→17:30)
[2019-05-26] MEDS: LEVOTHYROXINE SODIUM 112 MCG TABLET PO SCH (08:00)
[2019-05-26] MEDS: BUDESONIDE 0.5 MG/2 ML AMPUL.NEB NEB SCH ×2 (08:03→22:02)
--- NOTE | 2019-05-26 08:40 | Internal Med Progress Note ---
Medical - PN: Subj Patient information: Note initiated : 05/26/19 at 8:32 am Service Date, if different from initiated Date: [] Patient: Jeramy French a 83 y/o M admitted on 05/23/19 for SOB for 3 weeks. Chief Complaint: [] Interval history: Mr. French is a 83 year old M with a history of chronic disease stage I V/CAD/CHF/a flutter on anticoagulation presents to the ER with roughly 1 month onset of dyspnea, weakness fatigue and inability to function. Patient has noted progressive weight gain involving lower extremity along with gradual distention of abdomen. But he denies abdominal pain. His shortness of breath has progressed from maximal exertion to dyspnea at rest. He has not been able to get a restful sleep over the last couple of weeks. He is markedly orthopneic. He presents today with a combination of above symptoms. Initial work-up was consistent with severe hypoxia requiring 4 L oxygen. Patient was started on noninvasive ventilation after imaging showed bibasilar pneumonia/pleural effusion and blood gas consistent with hypoxia. Patient was started on antibiotic coverage and Solu-Medrol and subsequently hospitalist service was consulted. After evaluation patient is alert and oriented. He was able to answer most of the question. He is unable to talk in full sentences. No family members are present. He denies recent sick contacts. He denies fever chills but endorses to nonproductive cough that has progressed. He has not seen a primary care physician since the symptoms began. Other than that he denies diarrhea, dysuria, rash, joint pain, unilateral weakness, fainting spells or vertigo. 05/24-patient seen in room along with daughter. Feels a lot better. Overnight on BiPAP. Breathing a lot better. No telemetry events. paced rhythm, White count 9.5. Diuresing. Distended abdomen. Unable to talk in full sentences. Continuing antibiotic coverage on Zosyn and Levaquin. 05/25-patient doing well. Off BiPAP. ABG 7.43/30 7/64. On 2 L oxygen. Echocardiogram unremarkable with normal EF. CT chest pending. Abdominal ultrasound no evidence of mass lesion/ascites. X-ray chest worsening atelectasis/pneumonia bilateral lungs. Continue antibiotic coverage. Await ST eval. Continue aspiration precaution. White count at 18.6. INR 3. Creatinine 2.4. No overnight fever chills. 05/26 Seen by speech therapy, no clinical signs or symptoms of aspiration. She had thoracentesis yesterday of 1400 cc. Currently on 2 L at 95% sats. Has occasional cough. His shortness of breath is present but improving every day. No other complaints. Review of Systems: denies headache/fever/chills/nausea/vomiting/chest or abdominal pain/diarrhea. Otherwise see above. - Constitutional Vitals: Vital Signs Temp Pulse Resp BP Pulse Ox 97.0 F 65 16 96/53 95 05/25/19 20:08 05/25/19 23:14 05/25/19 23:14 05/26/19 07:26 05/26/19 07:26 Period Temp Pulse Resp BP Sys/[place] Pulse Ox Last 24 Hr 97.0 F-98.7 F 65-66 16-22 93-159/44-133 91-96 Intake and Output 05/25/19 05/26/19 05/26/19 21:59 05:59 13:59 Intake Total 340 530 50 Output Total 575 550 125 Balance -235 -20 -75 Weight 106.311 kg Intake & Output: Intake & Output 05/25/19 05/26/19 05/26/19 21:59 05:59 13:59 Intake Total 340 530 50 Output Total 575 550 125 Balance -235 -20 75 Weight 106.311 kg Intake: IV 100 50 50 Zosyn 2.25 gm In Dextrose 5% in 100 50 50 Water 50 ml @ 100 mls/hr IV Q6H [facility], [facility] Rx#:[id number] Oral 240 480 Output: Void Amount 575 550 125 Other: Meal Dinner Percent of Meal Consumed 100% Feeding Ability Assist with Tray Set Up Urine Appearance Clear Clear Clear Urine Color Straw Straw Bright Yellow Urine Odor Normal Normal Exam: General: Alert, Awake, No acute Distress Eyes/N/T: EOMI, Head/Neck: neck supple, CV: RRR, No murmurs, Pulm: mild bibase rales, no wheezing Abd: soft, nontender, +BS x4 Ext: no clubbing/cyanosis, 2+ b/l LE edema Neuro: Alert, no focal deficits, moves all extremities, Skin: warm/dry Medical - PN: Obj Da - Labs CBC & Chem 7: 05/26/19 06:29 05/26/19 06:30 Labs: Abnormal Lab Results 05/26/19 05/26/19 05/26/19 06:30 06:29 04:20 WBC 20.7 H RBC 3.35 L Hgb 10.8 L Hct 33.3 L MCV RDW 16.5 H MPV 7.0 L Gran % 96.0 H Lymph % (Auto) 1.5 L Gran # 19.9 H Lymph # (Auto) 0.3 L Seg Neutrophils % Lymphocytes % Myelocytes % RBC Morphology Anisocytosis Macrocytosis Ovalocytes ESR PT 34.5 H INR 3.5 H VBG Lactic Acid Sodium 127 L Chloride 88 L BUN 59 H Creatinine 2.5 H Glucose 230 H Calcium 8.5 L Phosphorus 4.9 H Troponin T C-Reactive Protein NT-Pro-B Natriuret Pep Globulin Albumin/Globulin Ratio 0.9 L Urine Glucose (UA) Ur Leukocyte Esterase 05/26/19 05/25/19 05/25/19 04:20 03:30 03:30 WBC 18.7 H RBC 3.50 L Hgb 11.3 L Hct 35.0 L MCV 100.1 H RDW 16.8 H MPV 7.1 L Gran % Lymph % (Auto) Gran # Lymph # (Auto) Seg Neutrophils % 91 H Lymphocytes % 2 L Myelocytes % 1 H RBC Morphology Abnorm A Anisocytosis 1+ A Macrocytosis 1+ A Ovalocytes Rare A ESR PT 30.8 H INR 3.0 H VBG Lactic Acid Sodium 132 L Chloride 92 L BUN 50 H Creatinine 2.4 H Glucose 348 H Calcium Phosphorus Troponin T C-Reactive Protein NT-Pro-B Natriuret Pep Globulin 3.8 H Albumin/Globulin Ratio 0.9 L Urine Glucose (UA) Ur Leukocyte Esterase 05/25/19 05/24/19 05/24/19 03:30 16:00 07:06 WBC 18.6 H RBC 3.44 L Hgb 11.2 L Hct 34.5 L MCV 100.1 H RDW 16.5 H MPV Gran % Lymph % (Auto) Gran # Lymph # (Auto) Seg Neutrophils % 91 H Lymphocytes % 1 L Myelocytes % RBC Morphology Abnorm A Anisocytosis 1+ A Macrocytosis 1+ A Ovalocytes ESR PT 29.1 H INR 2.8 H VBG Lactic Acid Sodium Chloride BUN Creatinine Glucose Calcium Phosphorus Troponin T C-Reactive Protein NT-Pro-B Natriuret Pep Globulin Albumin/Globulin Ratio Urine Glucose (UA) >=500 A Ur Leukocyte Esterase 25 A 05/24/19 05/24/19 05/24/19 03:45 03:45 03:45 WBC RBC 3.57 L Hgb 11.5 L Hct 36.0 L MCV 100.9 H RDW 16.6 H MPV 7.0 L Gran % Lymph % (Auto) Gran # Lymph # (Auto) Seg Neutrophils % Lymphocytes % 10 L Myelocytes % RBC Morphology Abnorm A Anisocytosis 1+ A Macrocytosis 1+ A Ovalocytes ESR PT INR VBG Lactic Acid 2.1 H Sodium Chloride 94 L BUN 44 H Creatinine 2.2 H Glucose 232 H Calcium Phosphorus Troponin T C-Reactive Protein NT-Pro-B Natriuret Pep Globulin 3.9 H Albumin/Globulin Ratio 0.8 L Urine Glucose (UA) Ur Leukocyte Esterase 05/23/19 05/23/19 05/23/19 17:34 17:34 17:34 WBC RBC 4.03 L Hgb 12.8 L Hct 40.2 L MCV RDW 16.5 H MPV 7.1 L Gran % 79.3 H Lymph % (Auto) 10.2 L Gran # 8.4 H Lymph # (Auto) 1.1 L Seg Neutrophils % Lymphocytes % Myelocytes % RBC Morphology Anisocytosis Macrocytosis Ovalocytes ESR PT INR VBG Lactic Acid Sodium 131 L Chloride 89 L BUN 43 H Creatinine 2.1 H Glucose 167 H Calcium Phosphorus Troponin T 0.08 H* C-Reactive Protein NT-Pro-B Natriuret Pep 664.0 H Globulin 4.4 H Albumin/Globulin Ratio 0.9 L Urine Glucose (UA) Ur Leukocyte Esterase 05/23/19 05/23/19 05/23/19 17:31 17:31 16:18 WBC RBC Hgb Hct MCV RDW MPV Gran % Lymph % (Auto) Gran # Lymph # (Auto) Seg Neutrophils % Lymphocytes % Myelocytes % RBC Morphology Anisocytosis Macrocytosis Ovalocytes ESR 95 H PT INR VBG Lactic Acid 2.3 H Sodium Chloride BUN Creatinine Glucose Calcium Phosphorus Troponin T C-Reactive Protein 2.7 H NT-Pro-B Natriuret Pep Globulin Albumin/Globulin Ratio Urine Glucose (UA) Ur Leukocyte Esterase Meds: Medications Acetaminophen (Tylenol) 650 mg PO Q4-6HP PRN PRN Reason: PAIN/FEVER > 101 Hydrocodone Bitart/Acetaminophen ([place] 10/325mg) 1 tab PO Q6H PRN PRN Reason: pain Last Admin: 05/25/19 22:22 Dose: 1 tab Documented by: Albuterol/Ipratropium (Duoneb) 3 ml NEB Q4HRT [facility] Last Admin: 05/26/19 08:03 Dose: 3 ml Documented by: Allopurinol (Zylopriim) 300 mg PO QDAY [facility] Last Admin: 05/25/19 10:08 Dose: 300 mg Documented by: Bisoprolol Fumarate (Zebeta) 5 mg PO QDAY [facility] Last Admin: 05/25/19 10:07 Dose: 5 mg Documented by: Budesonide (Pulmicort) 0.5 mg NEB Q12 [facility] Last Admin: 05/26/19 08:03 Dose: 0.5 mg Documented by: Calcitriol (Rocaltrol) 0.25 mcg PO QDAY [facility] Last Admin: 05/25/19 10:08 Dose: 0.25 mcg Documented by: Colchicine (Colcrys) 0 mg PO UD PRN PRN Reason: GOUT Last Admin: 05/24/19 09:59 Dose: 1.2 mg Documented by: Cyanocobalamin (Vitamin B-12) 1,000 mcg PO BID [facility] Stop: 05/28/19 09:01 Last Admin: 05/25/19 22:23 Dose: 1,000 mcg Documented by: Dextrose (Dextrose 50%) 0 ml IV UD PRN PRN Reason: Hypoglycemia Diagnostic Test (Pha) (Accu-Chek) 1 each FS ACHS [facility] Last Admin: 05/26/19 07:55 Dose: 1 each Documented by: Docusate Sodium (Colace) 100 mg PO BID [facility] Last Admin: 05/25/19 22:22 Dose: 100 mg Documented by: Folic Acid (Folic Acid) 1 mg PO DAILY [facility] Last Admin: 05/25/19 10:08 Dose: 1 mg Documented by: Furosemide (Lasix) 40 mg IV BID [facility] Last Admin: 05/25/19 22:21 Dose: 40 mg Documented by: Gabapentin (Neurontin) 300 mg PO QDAY [facility] Last Admin: 05/25/19 10:07 Dose: 300 mg Documented by: [facility]) [facility] Last Admin: 05/26/19 07:59 Dose: 15 mg Documented by: Glucose (Insta-Glucose) 15 gm PO PRN PRN PRN Reason: Hypoglycemia Guaifenesin/Codeine Phosphate (Robitussin Ac) 10 ml PO Q4HP PRN PRN Reason: Cough Hydralazine HCl (Apresoline) 10 mg IV Q4-6HP PRN PRN Reason: Hypertension Acetaminophen (Ofirmev) 1,000 mg in 100 mls @ 200 mls/hr IV Q6HP PRN PRN Reason: PAIN/FEVER > 101 Magnesium Sulfate (Magnesium Sulfate) 2 gm in 50 mls @ 50 mls/hr IV UD PRN PRN Reason: MG = or < 1.7 Piperacillin Sod/Tazobactam (Sod 2.25 gm/ Dextrose) 50 mls @ 100 mls/hr IV Q6H [facility]; Protocol Last Infusion: 05/26/19 06:30 Dose: Infused Documented by: Insulin Human Lispro (Humalog) 0 unit SQ [facility]; Protocol Last Admin: 05/26/19 07:59 Dose: 3 units Documented by: Iron Carb/Multivit/[place]/Folic Acid (Multivitamin W/Minerals) 1 tab PO DAILY [facility] Last Admin: 05/25/19 10:13 Dose: 1 tab Documented by: Levothyroxine Sodium (Synthroid) 112 mcg PO [facility] Last Admin: 05/26/19 08:00 Dose: 112 mcg Documented by: Levothyroxine Sodium (Synthroid) 25 mcg PO [facility] Last Admin: 05/26/19 07:59 Dose: 25 mcg Documented by: Multivitamins/Minerals (Ocuvite) 1 tab PO DAILY [facility] Last Admin: 05/25/19 10:08 Dose: 1 tab Documented by: Ondansetron HCl (Zofran) 4 mg IV Q4-6HP PRN PRN Reason: Nausea And Vomiting Gracie Ellipta 200-25 (Mcg Inh) 1 dose INH Q24H [facility] Last Admin: 05/25/19 10:18 Dose: Not Given Documented by: Heather Goldsmith] 1 (Inh) 1 dose INH Q24H [facility] Last Admin: 05/25/19 10:19 Dose: Not Given Documented by: Triamcinolone Acetonide 0.1% Ointment 1 dose TOPICAL BID [facility] Last Admin: 05/25/19 22:23 Dose: 1 dose Documented by: Potassium Chloride (Klor-Con) 40 meq PO DAILYP PRN PRN Reason: K+ < 3.5 Prednisone (Prednisone) 40 mg PO BIDCC [facility] Last Admin: 05/26/19 08:00 Dose: 40 mg Documented by: Senna/Docusate Sodium (Senna Plus Tablet) 1 tab PO HS [facility] Last Admin: 05/25/19 22:22 Dose: 1 tab Documented by: Simvastatin (Zocor) 20 mg PO QPM [facility] Last Admin: 05/25/19 22:23 Dose: 20 mg Documented by: Sitagliptin Phosphate (Januvia) 50 mg PO QDAY [facility] Last Admin: 05/25/19 10:13 Dose: 50 mg Documented by: Sodium Chloride (Saline Flush) 10 ml IV Q8 [facility] Last Admin: 05/26/19 06:00 Dose: 10 ml Documented by: Tamsulosin HCl (Flomax) 0.4 mg PO QDAY [facility] Last Admin: 05/25/19 10:18 Dose: 0.4 mg Documented by: Thiamine HCl (Vitamin B1) 100 mg PO DAILY [facility] Last Admin: 05/25/19 10:19 Dose: 100 mg Documented by: Trazodone HCl (Desyrel) 50 mg PO HSP PRN PRN Reason: Insomnia Last Admin: 05/25/19 22:45 Dose: 50 mg Documented by: Warfarin Sodium (Coumadin Per Pharmacy) 1 order PO DAILY@1400 [facility] Last Admin: 05/25/19 14:58 Dose: Not Given Documented by: Medical - PN: A/P - Time Spent With Patient Total time spent is greater than 50% in coordination of care (as documented) at patient's floor/unit and/or counseling patient: - Narrative A/P Narrative: A: *PNA -suspect Aspiration: -Chest CT with Large Left effusion, pleural plaquing, possible aspiration. 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 -home warfarin *Prosthetic aortic valve *h/o of CVA's: *Neuropathy: on gabapentin *Hypothyroidism/HLD/BPH: on thyroxine, statin, tamsulosin *Hyponatremia: Plan: -Zosyn -bronchodilators/IV steroids(wean)/pulmonary toilet and supplemental oxygen -cytology pending -IV lasix -Continue BB -cont SSI/sitagliptin -urine studies -PT/OT, Nutrition support -Case management to coordinate discharge planning likely SNF -ppx: warfarin per pharm Medical - PN: Qual - VTE Deep Vein Thrombosis/Pulmonary Embolism Present on Admission: No
[2019-05-26] MEDS: CYANOCOBALAMIN (VITAMIN B-12) 500 MCG TABLET PO SCH ×2 (09:51→21:40)
[2019-05-26] MEDS: MULTIVIT,THER IRON,CA,FA & MIN 1 TABLET PO SCH (09:51)
[2019-05-26] MEDS: BISOPROLOL 5 MG TABLET PO SCH (09:52)
[2019-05-26] MEDS: FOLIC ACID 1 MG TABLET PO SCH (09:52)
[2019-05-26] MEDS: CALCITRIOL 0.25 MCG CAPSULE PO SCH (09:52)
[2019-05-26] MEDS: VIT A,C & E/LUTEIN/MINERALS TABLET PO SCH (09:52)
[2019-05-26] MEDS: sitaGLIPtin 50 MG TABLET PO SCH (09:52)
[2019-05-26] MEDS: DOCUSATE SODIUM 100 MG CAPSULE PO SCH ×2 (09:52→21:39)
[2019-05-26] MEDS: ALLOPURINOL 300 MG TABLET PO SCH (09:52)
[2019-05-26] MEDS: THIAMINE 100 MG TABLET PO SCH (09:52)
[2019-05-26] MEDS: TAMSULOSIN 0.4 MG CAPSULE PO SCH (09:53)
[2019-05-26] MEDS: GABAPENTIN 300 MG CAPSULE PO SCH (09:54)
[2019-05-26] MEDS: FUROSEMIDE 40 MG/4 ML VIAL IV SCH (09:54)
[2019-05-26] MEDS: INCRUSE ELLIPTA INH SCH (10:04)
[2019-05-26] MEDS ORDERED: SODIUM CHLORIDE 1 GM TABLET PO SCH (10:20)
[2019-05-26] MEDS ORDERED: PIPERACILLIN SODIUM/TAZOBACTAM 2.25 GM in 0.9 % SODIUM CHLORIDE 50 ML IV SCH (12:00)
[2019-05-26] MEDS ORDERED: hydrALAZINE 20 MG/ML VIAL IV PRN (12:26)
[2019-05-26] MEDS ORDERED: ACETAMINOPHEN 325 MG TABLET PO PRN (12:26)
[2019-05-26] MEDS ORDERED: DEXTROSE 50% 50 ML VIAL IV PRN (12:26)
[2019-05-26] MEDS ORDERED: DEXTROSE 31 GM ORAL.SUSP PO PRN (12:26)
[2019-05-26] MEDS ORDERED: ACETAMINOPHEN 1,000 MG/100 ML BOTTLE IV PRN (12:26)
[2019-05-26] MEDS ORDERED: MAGNESIUM SULFATE 2 GM/50 ML BAG IV PRN (12:26)
[2019-05-26] MEDS ORDERED: ONDANSETRON 4 MG/2 ML VIAL IV PRN (12:26)
[2019-05-26] MEDS ORDERED: guaiFENesin/CODEINE 10 ML UDC PO PRN (12:26)
[2019-05-26] MEDS ORDERED: COLCHICINE 0.6 MG TABLET PO PRN (12:26)
[2019-05-26] MEDS ORDERED: HYDROcodone/APAP 10/325MG TABLET PO PRN (12:26)
[2019-05-26] MEDS ORDERED: POTASSIUM CHLORIDE 20 MEQ PACKET PO PRN (12:26)
[2019-05-26 12:31] LABS: Osmolality,Urine 275 mOsm/kg (80-1000); Sodium, Urine Random < 20 mmol/L
--- NOTE | 2019-05-26 14:25 | Discharge Summary ---
Medical - DS: Prov Patient information: Note initiated : 05/26/19 at 2:23 pm Service Date, if different from initiated Date: [] Patient: Jeramy French 83 y/o M admitted on 05/23/19 for SOB for 3 weeks. Chief Complaint: [] Date of admission: 05/23/19 20:11 Discharge date: 05/28/19 Primary care physician: Ramsey Andrade Consults: 05/23/19 Consult to Physician [CONS] Stat Comment: Consulting Provider: Tom Yang Reason For Exam: Physician to Consult Medical - DS: Meds - Discharge Medications Prescriptions: Amoxicillin/Potassium Clav [Augmentin] 500 mg PO Q12H #6 tab Lactobacillus [Culturelle] 1 cap PO BID #40 cap predniSONE [Prednisone] 30 mg PO QAC #1 tab Active and Home Medications: Home Medications Lutein Extract/Zeaxanthin Ext [Lutein 15 mg Softgel] 1 each PO QDAY 06/12/16 [History Confirmed 05/23/19 Last Taken Unknown] Vitamin D3 2,000 unit PO DAILY 06/12/16 [History Confirmed 05/23/19 Last Taken Unknown] bisoprolol fumarate 5 mg tablet 5 mg PO QDAY 90 Days #90 tab 11/04/16 [History Confirmed 05/23/19 Last Taken Unknown] furosemide 40 mg tablet See Rx Instructions PO .QOD #135 tab 09/06/18 [Rx Confirmed 05/23/19 Last Taken Unknown] calcitriol 0.25 mcg capsule 0.25 mcg PO QDAY #30 cap 09/20/18 [Rx Confirmed 05/23/19 Last Taken Unknown] allopurinol 300 mg tablet 300 mg PO QDAY #90 tab 01/19/19 [Rx Confirmed 05/23/19 Last Taken Unknown] simvastatin 20 mg tablet 20 mg PO QPM #90 tab 02/15/19 [Rx Confirmed 05/23/19 Last Taken Unknown] tamsulosin 0.4 mg capsule 0.4 mg PO QDAY #90 cap 02/15/19 [Rx Confirmed 05/23/19 Last Taken Unknown] albuterol sulfate 90 mcg/actuation aerosol inhaler 2 puff INHALATION Q6H PRN #18 g 03/13/19 [Rx Confirmed 05/23/19 Last Taken Unknown] colchicine 0.6 mg tablet 0.6 mg PO ONCE #20 tab 03/16/19 [Rx Confirmed 05/23/19 Last Taken Unknown] levofloxacin 500 mg tablet 500 mg PO QDAY #10 tab 03/20/19 [Rx Confirmed 05/23/19 Last Taken Unknown] blood sugar diagnostic See Dose Instructions .ROUTE .MEDSUPPLY #100 each 03/28/19 [Rx Confirmed 05/23/19 Last Taken Unknown] lancets See Dose Instructions .ROUTE .MEDSUPPLY #100 each 03/28/19 [Rx Confirmed 05/23/19 Last Taken Unknown] hydrocodone 10 mg-acetaminophen 325 mg tablet 1 tab PO Q6H PRN #30 tab 04/03/19 [Rx Confirmed 05/23/19 Last Taken Unknown] umeclidinium 62.5 mcg/actuation blister powder for inhalation 1 inh INHALATION Q24H #90 each 04/17/19 [Rx Confirmed 05/23/19 Last Taken Unknown] gabapentin 300 mg capsule 300 mg PO QDAY #90 cap 05/09/19 [Rx Confirmed 05/23/19 Last Taken Unknown] glipizide 10 mg tablet 15 mg PO QDAY #135 tab 05/09/19 [Rx Confirmed 05/23/19 Last Taken Unknown] levothyroxine 137 mcg tablet 137 mcg PO QDAY #90 tab 05/09/19 [Rx Confirmed 05/23/19 Last Taken Unknown] sitagliptin 50 mg tablet 50 mg PO QDAY #90 tab 05/09/19 [Rx Confirmed 05/23/19 Last Taken Unknown] warfarin 2.5 mg tablet 2.5 mg PO .COMPLEX tab 05/11/19 [History Confirmed 05/23/19 Last Taken Unknown] fluticasone furoate 200 mcg-vilanterol 25 mcg/dose inhalation powder 1 inh INHALATION Q24H #60 each 05/17/19 [Rx Confirmed 05/23/19 Last Taken Unknown] triamcinolone acetonide 0.1 % topical ointment 1 applic TOPICAL BID 10 Days #30 g 05/23/19 [Rx Confirmed 05/23/19 Last Taken Unknown] Medical - DS: Hosp Hospital Course: Mr. French is a 83 year old M with a history of chronic disease stage IV/CAD/CHF/a flutter on anticoagulation presents to the ER with roughly 1 month onset of dyspnea, weakness fatigue and inability to function. Patient has noted progressive weight gain involving lower extremity along with gradual distention of abdomen. But he denies abdominal pain. His shortness of breath has progressed from maximal exertion to dyspnea at rest. He has not been able to get a restful sleep over the last couple of weeks. He is markedly orthopneic. He presents today with a combination of above symptoms. Initial work-up was consistent with severe hypoxia requiring 4 L oxygen. Patient was started on noninvasive ventilation after imaging showed bibasilar pneumonia/pleural effusion and blood gas consistent with hypoxia. Patient was started on antibiotic coverage and Solu-Medrol and subsequently hospitalist service was consulted. After evaluation patient is alert and oriented. He was able to answer most of the question. He is unable to talk in full sentences. No family members are present. He denies recent sick contacts. He denies fever chills but endorses to nonproductive cough that has progressed. He has not seen a primary care physician since the symptoms began. Other than that he denies diarrhea, dysuria, rash, joint pain, unilateral weakness, fainting spells or vertigo. 05/24-patient seen in room along with daughter. Feels a lot better. Overnight on BiPAP. Breathing a lot better. No telemetry events. paced rhythm, White count 9.5. Diuresing. Distended abdomen. Unable to talk in full sentences. Continuing antibiotic coverage on Zosyn and Levaquin. 05/25-patient doing well. Off BiPAP. ABG 7.43/30 7. On 2 L oxygen. Echocardiogram unremarkable with normal EF. CT chest pending. Abdominal ultrasound no evidence of mass lesion/ascites. X-ray chest worsening atelectasis/pneumonia bilateral lungs. Continue antibiotic coverage. Await ST eval. Continue aspiration precaution. White count at 18.6. INR 3. Creatinine 2.4. No overnight fever chills. 05/26 Seen by speech therapy, no clinical signs or symptoms of aspiration. She had thoracentesis yesterday of 1400 cc. Currently on 2 L at 95% sats. Has occasional cough. His shortness of breath is present but improving every day. No other complaints. 05/27 Was on room air yesterday and overnight but then placed on oxygen this morning b/c finger was reading 82%, and was placed on 4L's to bring to 92. However in rechecking the same finger on 4L's it read 87% but the next finger read 97% and others read 94 and 93%. He feels his shortness of breath is baseline. denies cough. 05/28 RT to assess for home oxygen. No overnight events. Patient feeling well and desiring to go home. Had been on 1 L of oxygen through the night. Patient debilitated from multiple comorbidities and advanced age. Appears to be high risk for readmission and tenuous at baseline. A: *PNA -suspect Aspiration: -Chest CT with Large Left effusion, pleural plaquing, possible aspiration. -ST eval no clinical s/s of aspiration *Large left pleural effusion/Atelectasis: -s/p thora of 1400 (05/25) exudate, no organisms on stain. 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 -home warfarin *Prosthetic aortic valve *h/o of CVA's: *Neuropathy: on gabapentin *Hypothyroidism/HLD/BPH: on thyroxine, statin, tamsulosin *Hyponatremia: Discharge diagnosis: Pneumonia suspect aspiration large left pleural effusion atelectasis Secondary discharge diagnosis: Acute exacerbation COPD hypoxic respiratory failure CHF with pleural effusion diabetes atrial flutter fibrillation chronic kidney disease stage IV gout prosthetic aortic valve history of strokes neuropathy hypothyroidism hyponatremia - Time Spent with Patient Total time spent providing and/or coordinating discharge services: Greater than 30 minutes Medical - DS: Exam - Constitutional Vitals: Vital Signs Temp Pulse Pulse Resp BP BP Pulse Ox 05/26/19 12:30 59 L 16 05/26/19 11:42 97.5 F 20 98/46 98 05/26/19 08:00 80 20 05/26/19 07:30 95 05/26/19 07:26 97.3 F 20 96/53 95 05/26/19 02:19 95 05/25/19 23:59 99/52 94 05/25/19 23:57 103/45 95 05/25/19 23:54 99/52 05/25/19 23:47 99/44 95 05/25/19 23:14 65 16 05/25/19 20:39 65 95 05/25/19 20:08 97.0 F 20 103/49 95 05/25/19 19:29 65 16 05/25/19 16:23 98.7 F 22 99/44 96 05/25/19 16:08 65 18 Intake and Output 05/26/19 05/26/19 05/26/19 05:59 13:59 21:59 Intake Total 530 580 Output Total 550 375 Balance -20 205 Intake: IV 50 100 Zosyn 2.25 gm In Sodium 50 Chloride 0.9% 50 ml @ 100 mls/ hr IV Q6H [facility] Rx#:[id number] Zosyn 2.25 gm In Dextrose 5% in 50 50 Water 50 ml @ 100 mls/hr IV Q6H [facility] Rx#:[id number] Oral 480 480 Output: Void Amount 550 375 Other: Meal Breakfast Percent of Meal Consumed 100% Urine Appearance Clear Clear Urine Color Straw Dark Yellow Urine Odor Normal Normal Medical - DS: Data Labs on day of discharge: Labs from last 24 hours 05/26/19 05/26/19 05/26/19 10:40 10:40 10:40 WBC RBC Hgb Hct MCV MCH MCHC RDW Plt Count MPV Gran % Lymph % (Auto) Randolph % (Auto) Eos % (Auto) Baso % (Auto) Gran # Lymph # (Auto) Randolph # (Auto) Eos # (Auto) Baso # (Auto) Total Counted Seg Neutrophils % Band Neutrophils % Lymphocytes % Monocytes % (Manual) Myelocytes % Platelet Estimate RBC Morphology Anisocytosis Macrocytosis Ovalocytes PT INR Sodium Potassium Chloride Carbon Dioxide Anion Gap BUN Creatinine GFR Calculation Glucose Osmolality Pending Uric Acid Calcium Phosphorus Magnesium Total Bilirubin Direct Bilirubin GGT AST ALT Alkaline Phosphatase Lactate Dehydrogenase Total Protein Albumin Globulin Albumin/Globulin Ratio Triglycerides Procalcitonin Urine Osmolality Ur Random Creatinine 46.4 Ur Random Sodium Urine Urea Nitrogen 428 Fluid pH Fluid Total Protein Fluid LDH Pleural Fluid Source Pleural Color Pleural Appearance Pleural RBC Pleural Tot Cell Ct Pleural Nuc Cells Pleural Neutrophils Pleural Lymphocytes Pleural Eosinophils Pleural Macrophages Pleural Total Protein Pleural LDH Pleural Glucose 05/26/19 05/26/19 05/26/19 10:40 06:30 06:29 WBC 20.7 H RBC 3.35 L Hgb 10.8 L Hct 33.3 L MCV 99.5 MCH 32.4 MCHC 32.5 RDW 16.5 H Plt Count 201 MPV 7.0 L Gran % 96.0 H Lymph % (Auto) 1.5 L Randolph % (Auto) 2.3 Eos % (Auto) 0.1 Baso % (Auto) 0.1 Gran # 19.9 H Lymph # (Auto) 0.3 L Randolph # (Auto) 0.5 Eos # (Auto) 0 Baso # (Auto) 0 Total Counted Seg Neutrophils % Band Neutrophils % Lymphocytes % Monocytes % (Manual) Myelocytes % Platelet Estimate RBC Morphology Anisocytosis Macrocytosis Ovalocytes PT INR Sodium 127 L Potassium 4.2 Chloride 88 L Carbon Dioxide 25 Anion Gap 14.0 BUN 59 H Creatinine 2.5 H GFR Calculation 23 Glucose 230 H Osmolality Uric Acid 4.5 Calcium 8.5 L Phosphorus 4.9 H Magnesium 2.3 Total Bilirubin 0.3 Direct Bilirubin < 0.2 GGT 22 AST 17 ALT 16 Alkaline Phosphatase 76 Lactate Dehydrogenase 175 Total Protein 6.9 Albumin 3.2 Globulin 3.7 Albumin/Globulin Ratio 0.9 L Triglycerides 68 Procalcitonin Urine Osmolality 275 Ur Random Creatinine Ur Random Sodium < 20 Urine Urea Nitrogen Fluid pH Fluid Total Protein Fluid LDH Pleural Fluid Source Pleural Color Pleural Appearance Pleural RBC Pleural Tot Cell Ct Pleural Nuc Cells Pleural Neutrophils Pleural Lymphocytes Pleural Eosinophils Pleural Macrophages Pleural Total Protein Pleural LDH Pleural Glucose 05/26/19 05/26/19 05/26/19 06:27 04:20 04:20 WBC RBC Hgb Hct MCV MCH MCHC RDW Plt Count MPV Gran % Lymph % (Auto) Randolph % (Auto) Eos % (Auto) Baso % (Auto) Gran # Lymph # (Auto) Randolph # (Auto) Eos # (Auto) Baso # (Auto) Total Counted Seg Neutrophils % Band Neutrophils % Lymphocytes % Monocytes % (Manual) Myelocytes % Platelet Estimate RBC Morphology Anisocytosis Macrocytosis Ovalocytes PT 34.5 H INR 3.5 H Sodium TNP Potassium TNP Chloride TNP Carbon Dioxide TNP Anion Gap TNP BUN TNP Creatinine TNP GFR Calculation TNP Glucose TNP Osmolality Uric Acid TNP Calcium TNP Phosphorus TNP Magnesium TNP Total Bilirubin TNP Direct Bilirubin TNP GGT TNP AST TNP ALT TNP Alkaline Phosphatase TNP Lactate Dehydrogenase TNP Total Protein TNP Albumin TNP Globulin TNP Albumin/Globulin Ratio TNP Triglycerides TNP Procalcitonin < 0.10 Urine Osmolality Ur Random Creatinine Ur Random Sodium Urine Urea Nitrogen Fluid pH Fluid Total Protein Fluid LDH Pleural Fluid Source Pleural Color Pleural Appearance Pleural RBC Pleural Tot Cell Ct Pleural Nuc Cells Pleural Neutrophils Pleural Lymphocytes Pleural Eosinophils Pleural Macrophages Pleural Total Protein Pleural LDH Pleural Glucose 05/26/19 05/25/19 05/25/19 04:20 Unknown 13:35 WBC 18.7 H RBC 3.50 L Hgb 11.3 L Hct 35.0 L MCV 100.1 H MCH 32.3 MCHC 32.3 RDW 16.8 H Plt Count 201 MPV 7.1 L Gran % Lymph % (Auto) Randolph % (Auto) Eos % (Auto) Baso % (Auto) Gran # Lymph # (Auto) Randolph # (Auto) Eos # (Auto) Baso # (Auto) Total Counted 100 Seg Neutrophils % 91 H Band Neutrophils % 1 Lymphocytes % 2 L Monocytes % (Manual) 5 Myelocytes % 1 H Platelet Estimate Normal RBC Morphology Abnorm A Anisocytosis 1+ A Macrocytosis 1+ A Ovalocytes Rare A PT INR Sodium Potassium Chloride Carbon Dioxide Anion Gap BUN Creatinine GFR Calculation Glucose Osmolality Uric Acid Calcium Phosphorus Magnesium Total Bilirubin Direct Bilirubin GGT AST ALT Alkaline Phosphatase Lactate Dehydrogenase Total Protein Albumin Globulin Albumin/Globulin Ratio Triglycerides Procalcitonin Urine Osmolality Ur Random Creatinine Ur Random Sodium Urine Urea Nitrogen Fluid pH Fluid Total Protein TNP Fluid LDH TNP Pleural Fluid Source Pleural Color Pleural Appearance Pleural RBC Pleural Tot Cell Ct Pleural Nuc Cells Pleural Neutrophils Pleural Lymphocytes Pleural Eosinophils Pleural Macrophages Pleural Total Protein 5.1 Pleural LDH 308 Pleural Glucose 05/25/19 13:35 WBC RBC Hgb Hct MCV MCH MCHC RDW Plt Count MPV Gran % Lymph % (Auto) Randolph % (Auto) Eos % (Auto) Baso % (Auto) Gran # Lymph # (Auto) Randolph # (Auto) Eos # (Auto) Baso # (Auto) Total Counted Seg Neutrophils % Band Neutrophils % Lymphocytes % Monocytes % (Manual) Myelocytes % Platelet Estimate RBC Morphology Anisocytosis Macrocytosis Ovalocytes PT INR Sodium Potassium Chloride Carbon Dioxide Anion Gap BUN Creatinine GFR Calculation Glucose Osmolality Uric Acid Calcium Phosphorus Magnesium Total Bilirubin Direct Bilirubin GGT AST ALT Alkaline Phosphatase Lactate Dehydrogenase Total Protein Albumin Globulin Albumin/Globulin Ratio Triglycerides Procalcitonin Urine Osmolality Ur Random Creatinine Ur Random Sodium Urine Urea Nitrogen Fluid pH 7.30 Fluid Total Protein Fluid LDH Pleural Fluid Source Pleural Pleural Color Red Pleural Appearance Bloody Pleural RBC > [id number] Pleural Tot Cell Ct 100 Pleural Nuc Cells 1454 Pleural Neutrophils 17 Pleural Lymphocytes 78 Pleural Eosinophils 1 Pleural Macrophages 4 Pleural Total Protein Pleural LDH Pleural Glucose 288 Preliminary micro results at discharge 05/24/19 22:28 Sputum Culture - Preliminary Sputum - Induced 05/25/19 13:35 Anaerobic Culture - Preliminary Pleural Fluid 05/24/19 16:00 Urine Culture - Preliminary Urine - Clean Void Mid-Stream 05/23/19 18:51 Blood Culture - Preliminary Blood 05/23/19 18:58 Blood Culture - Preliminary Blood Medical - DS: A/P - Patient/Caregiver Discharge Instructions Activity: as per physical therapy Diet: Consistent Carbohydrate Prescriptions: Amoxicillin/Potassium Clav [Augmentin] 500 mg PO Q12H #6 tab Lactobacillus [Culturelle] 1 cap PO BID #40 cap predniSONE [Prednisone] 30 mg PO QAMCC #1 tab Other Amb Orders: Prothrombin Time INR Time Frame: 2 Days, Location: None Selected - Follow up Plan Follow up with: Ramsye Andrade MD [Primary Care Provider] - Eugenia Quinn MD [Physician] - Disposition: Home Health Service Prognosis: Undetermined Rehab Potential: Fair Overall status at discharge: patient is progressing back to baseline Medical - DS: Qual - VTE Deep Vein Thrombosis/Pulmonary Embolism Present on Admission: No
--- NOTE | 2019-05-26 15:34 | XRay Report ---
HISTORY: Pleural effusion, shortness of breath and pulmonary infiltrates FINDINGS: Patient has bilateral pleural effusions, small to moderate on the left left and small on the right side. Associated with this is partial atelectasis of both lower lobes. Increased interstitial lung markings are seen in the upper lobes. There is improved aeration of both lungs since yesterday, especially on the left side. Left-sided pleural effusion has diminished in volume. The heart is mildly enlarged but has also improved. IMPRESSION: Improving atelectasis/pneumonia in both lungs Decreased cardiomegaly Interpreted and Authenticated by: Bautista Vidal 05/26/19
[2019-05-26] MEDS ORDERED: FUROSEMIDE 40 MG/4 ML VIAL IV SCH ×2 (16:00→21:00)
[2019-05-26 16:24] LABS: Blood Urea Nitrogen 63 mg/dl (8-23); Calcium 8.8 mg/dl (8.6-10.4); Carbon Dioxide 25 mmol/L (22-30); Chloride 88 mmol/L (96-108); Glomerular Filtration Rate 22; Glucose 288 mg/dL (70-105)
[2019-05-26] MEDS: SODIUM CHLORIDE 1 GM TABLET PO SCH ×2 (16:51→21:40)
[2019-05-26] MEDS: FUROSEMIDE 40 MG/4 ML VIAL IV ONE ×2 (16:52→21:44)
[2019-05-26] MEDS: PIPERACILLIN SODIUM/TAZOBACTAM 2.25 GM in 0.9 % SODIUM CHLORIDE 50 ML IV SCH ×2 (17:25→23:36)
[2019-05-26] MEDS: SENNOSIDES/DOCUSATE SODIUM 1 TAB TABLET PO SCH (21:38)
[2019-05-26] MEDS: SIMVASTATIN 20 MG TABLET PO SCH (21:39)
[2019-05-26] MEDS: traZODone HCL 50 MG TABLET PO PRN (23:40)
[2019-05-27] MEDS: IPRATROPIUM/ALBUTEROL 3 ML AMPUL.NEB NEB SCH ×6 (02:49→22:41)
[2019-05-27] MEDS: PIPERACILLIN SODIUM/TAZOBACTAM 2.25 GM in 0.9 % SODIUM CHLORIDE 50 ML IV SCH ×4 (05:38→23:47)
[2019-05-27 05:46] LABS: INR 3.5 (0.9-1.1); Prothrombin Time 34.3 sec (11.9-14.5)
[2019-05-27 05:49] LABS: Hematocrit 35.1 % (41.0-55.0); Hemoglobin 11.2 g/dL (13.5-16.5); Mean Cell Volume 100.7 fL (80.0-100.0); Mean Platelet Volume 7.5 fL (7.4-10.4); Platelet Count 192 K/mcL (140-440); RBC 3.49 M/mcL (4.50-5.90); Red Cell Distribution Width 16.7 % (11.5-14.5); WBC 16.1 K/mcL (4.5-11.0)
[2019-05-27] MEDS: 0.9 % SODIUM CHLORIDE 10 ML SYRINGE IV SCH ×3 (06:02→20:44)
[2019-05-27 06:09] LABS: ALT/SGPT 25 U/l (0-40); AST/SGOT 21 U/l (0-37); Albumin 3.1 gm/dL (3.2-5.2); Albumin/Globulin Ratio 0.9 (1.0-2.3); Alkaline Phosphatase 82 U/L (39-117); Bilirubin,Direct < 0.2 mg/dL (0.0-0.3); Bilirubin,Total 0.3 mg/dL (0.0-1.0); Blood Urea Nitrogen 67 mg/dl (8-23); Calcium 8.8 mg/dl (8.6-10.4); Carbon Dioxide 24 mmol/L (22-30); Chloride 92 mmol/L (96-108); Globulin 3.6 gm/dL (2.2-3.7); Glomerular Filtration Rate 22; Glucose 243 mg/dL (70-105); Lactate Dehydrogenase 157 U/L (94-250); Phosphorous 4.1 mg/dL (2.7-4.5); Triglycerides 97 mg/dl (<150); Uric Acid 4.7 mg/dL (2.5-8.0)
[2019-05-27 06:39] LABS: Band Neutrophils % 10 % (0-10); Lymphocytes % 3 % (15-49); Monocytes % (Manual) 4 % (1-12); Platelet Estimate NORMAL (NORMAL); RBC Morphology NORMAL (NORMAL); Segmented Neutrophils % 83 % (38-78)
[2019-05-27] MEDS: DOCUSATE SODIUM 100 MG CAPSULE PO SCH ×2 (07:49→20:40)
[2019-05-27] MEDS: BUDESONIDE 0.5 MG/2 ML AMPUL.NEB NEB SCH ×2 (08:26→19:14)
[2019-05-27] MEDS: INCRUSE ELLIPTA INH SCH (08:44)
[2019-05-27] MEDS: glipiZIDE 5 MG TABLET PO SCH (08:45)
[2019-05-27] MEDS: GABAPENTIN 300 MG CAPSULE PO SCH (08:46)
[2019-05-27] MEDS: predniSONE 20 MG TABLET PO SCH (08:46)
[2019-05-27] MEDS: CYANOCOBALAMIN (VITAMIN B-12) 500 MCG TABLET PO SCH ×2 (08:46→20:40)
[2019-05-27] MEDS: CALCITRIOL 0.25 MCG CAPSULE PO SCH (08:46)
[2019-05-27] MEDS: TAMSULOSIN 0.4 MG CAPSULE PO SCH (08:46)
[2019-05-27] MEDS: VIT A,C & E/LUTEIN/MINERALS TABLET PO SCH (08:46)
[2019-05-27] MEDS: sitaGLIPtin 50 MG TABLET PO SCH (08:46)
[2019-05-27] MEDS: LEVOTHYROXINE SODIUM 112 MCG TABLET PO SCH (08:47)
[2019-05-27] MEDS: MULTIVIT,THER IRON,CA,FA & MIN 1 TABLET PO SCH (08:47)
[2019-05-27] MEDS: THIAMINE 100 MG TABLET PO SCH (08:47)
[2019-05-27] MEDS: FOLIC ACID 1 MG TABLET PO SCH (08:47)
[2019-05-27] MEDS: LEVOTHYROXINE 25 MCG TABLET PO SCH (08:47)
[2019-05-27] MEDS: INSULIN LISPRO 1 UNIT/0.01 ML UNIT SQ SCH ×4 (08:47→20:45)
[2019-05-27] MEDS: ALLOPURINOL 300 MG TABLET PO SCH (08:47)
--- NOTE | 2019-05-27 08:58 | Internal Med Progress Note ---
Medical - PN: Subj Patient information: Note initiated : 05/27/19 at 8:55 am Service Date, if different from initiated Date: [] Patient: Jeramy French a 83 y/o M admitted on 05/23/19 for SOB for 3 weeks. Chief Complaint: [] Interval history: Mr. French is a 83 year old M with a history of chronic disease stage I V/CAD/CHF/a flutter on anticoagulation presents to the ER with roughly 1 month onset of dyspnea, weakness fatigue and inability to function. Patient has noted progressive weight gain involving lower extremity along with gradual distention of abdomen. But he denies abdominal pain. His shortness of breath has progressed from maximal exertion to dyspnea at rest. He has not been able to get a restful sleep over the last couple of weeks. He is markedly orthopneic. He presents today with a combination of above symptoms. Initial work-up was consistent with severe hypoxia requiring 4 L oxygen. Patient was started on noninvasive ventilation after imaging showed bibasilar pneumonia/pleural effusion and blood gas consistent with hypoxia. Patient was started on antibiotic coverage and Solu-Medrol and subsequently hospitalist service was consulted. After evaluation patient is alert and oriented. He was able to answer most of the question. He is unable to talk in full sentences. No family members are present. He denies recent sick contacts. He denies fever chills but endorses to nonproductive cough that has progressed. He has not seen a primary care physician since the symptoms began. Other than that he denies diarrhea, dysuria, rash, joint pain, unilateral weakness, fainting spells or vertigo. 05/24-patient seen in room along with daughter. Feels a lot better. Overnight on BiPAP. Breathing a lot better. No telemetry events. paced rhythm, White count 9.5. Diuresing. Distended abdomen. Unable to talk in full sentences. Continuing antibiotic coverage on Zosyn and Levaquin. 05/25-patient doing well. Off BiPAP. ABG 7.43/30 7/64. On 2 L oxygen. Echocardiogram unremarkable with normal EF. CT chest pending. Abdominal ultrasound no evidence of mass lesion/ascites. X-ray chest worsening atelectasis/pneumonia bilateral lungs. Continue antibiotic coverage. Await ST eval. Continue aspiration precaution. White count at 18.6. INR 3. Creatinine 2.4. No overnight fever chills. 05/26 Seen by speech therapy, no clinical signs or symptoms of aspiration. She had thoracentesis yesterday of 1400 cc. Currently on 2 L at 95% sats. Has occasional cough. His shortness of breath is present but improving every day. No other complaints. 05/27 Was on room air yesterday and overnight but then placed on oxygen this morning b/c finger was reading 82%, and was placed on 4L's to bring to 92. However in rechecking the same finger on 4L's it read 87% but the next finger read 97% and others read 94 and 93%. He feels his shortness of breath is baseline. denies cough. Review of Systems: denies headache/fever/chills/nausea/vomiting/chest or abdominal pain/diarrhea. Otherwise see above. - Constitutional Vitals: Vital Signs Temp Pulse Resp BP Pulse Ox 97.2 F 94 H 20 101/53 92 05/27/19 08:00 05/27/19 08:28 05/27/19 08:28 05/27/19 08:00 05/27/19 08:00 Period Temp Pulse Resp BP Sys/Medellin Pulse Ox Last 24 Hr 97.2 F-97.6 F 59-94 16-20 98-114/46-74 92-98 Intake and Output 05/26/19 05/27/19 05/27/19 21:59 05:59 13:59 Intake Total 1440 450 480 Output Total 1225 250 50 Balance 215 200 430 Weight 110.268 kg Intake & Output: Intake & Output 05/26/19 05/27/19 05/27/19 21:59 05:59 13:59 Intake Total 1440 450 480 Output Total 1225 250 50 Balance 215 200 430 Weight 110.268 kg Intake: IV 50 50 Zosyn 2.25 gm In Sodium 50 50 Chloride 0.9% 50 ml @ 100 mls/ hr IV Q6H [facility] Rx#:[id number] Oral 540 400 480 GI Tube Flush 850 Output: Void Amount 1225 250 50 Other: Meal Dinner Breakfast Percent of Meal Consumed 100% 100% Feeding Ability Independent Independent Urine Appearance Clear Clear Urine Color Bright Yellow Pale Light Rhonda Urine Odor Normal Normal Stool Size Large Stool Color Brown Stool Consistency Soft # Bowel Movements 1 Exam: General: Alert, Awake, No acute Distress Eyes/N/T: EOMI, Head/Neck: neck supple, CV: RRR, No murmurs, Pulm: diminished at bases, left base with rales, no wheezing Abd: soft, nontender, +BS x4 Ext: no clubbing/cyanosis, 3+ b/l LE edema Neuro: Alert, no focal deficits, moves all extremities, Skin: warm/dry Medical - PN: Obj Da - Labs CBC & Chem 7: 05/27/19 04:30 05/27/19 04:30 Labs: Abnormal Lab Results 05/27/19 05/27/19 05/27/19 04:30 04:30 04:30 WBC 16.1 H RBC 3.49 L Hgb 11.2 L Hct 35.1 L MCV 100.7 H RDW 16.7 H MPV Gran % Lymph % (Auto) Gran # Lymph # (Auto) Seg Neutrophils % 83 H Lymphocytes % 3 L Myelocytes % RBC Morphology Anisocytosis Macrocytosis Ovalocytes PT 34.3 H INR 3.5 H Sodium 130 L Chloride 92 L BUN 67 H Creatinine 2.6 H Glucose 243 H Osmolality Calcium Phosphorus Albumin 3.1 L Globulin Albumin/Globulin Ratio 0.9 L Urine Glucose (UA) Ur Leukocyte Esterase 05/26/19 05/26/19 05/26/19 15:04 10:40 06:30 WBC RBC Hgb Hct MCV RDW MPV Gran % Lymph % (Auto) Gran # Lymph # (Auto) Seg Neutrophils % Lymphocytes % Myelocytes % RBC Morphology Anisocytosis Macrocytosis Ovalocytes PT INR Sodium 129 L 127 L Chloride 88 L 88 L BUN 63 H 59 H Creatinine 2.6 H 2.5 H Glucose 288 H 230 H Osmolality 304 H Calcium 8.5 L Phosphorus 4.9 H Albumin Globulin Albumin/Globulin Ratio 0.9 L Urine Glucose (UA) Ur Leukocyte Esterase 05/26/19 05/26/19 05/26/19 06:29 04:20 04:20 WBC 20.7 H 18.7 H RBC 3.35 L 3.50 L Hgb 10.8 L 11.3 L Hct 33.3 L 35.0 L MCV 100.1 H RDW 16.5 H 16.8 H MPV 7.0 L 7.1 L Gran % 96.0 H Lymph % (Auto) 1.5 L Gran # 19.9 H Lymph # (Auto) 0.3 L Seg Neutrophils % 91 H Lymphocytes % 2 L Myelocytes % 1 H RBC Morphology Abnorm A Anisocytosis 1+ A Macrocytosis 1+ A Ovalocytes Rare A PT 34.5 H INR 3.5 H Sodium Chloride BUN Creatinine Glucose Osmolality Calcium Phosphorus Albumin Globulin Albumin/Globulin Ratio Urine Glucose (UA) Ur Leukocyte Esterase 05/25/19 05/25/19 05/25/19 03:30 03:30 03:30 WBC 18.6 H RBC 3.44 L Hgb 11.2 L Hct 34.5 L MCV 100.1 H RDW 16.5 H MPV Gran % Lymph % (Auto) Gran # Lymph # (Auto) Seg Neutrophils % 91 H Lymphocytes % 1 L Myelocytes % RBC Morphology Abnorm A Anisocytosis 1+ A Macrocytosis 1+ A Ovalocytes PT 30.8 H INR 3.0 H Sodium 132 L Chloride 92 L BUN 50 H Creatinine 2.4 H Glucose 348 H Osmolality Calcium Phosphorus Albumin Globulin 3.8 H Albumin/Globulin Ratio 0.9 L Urine Glucose (UA) Ur Leukocyte Esterase 05/24/19 05/24/19 16:00 03:45 WBC RBC Hgb Hct MCV RDW MPV Gran % Lymph % (Auto) Gran # Lymph # (Auto) Seg Neutrophils % Lymphocytes % 10 L Myelocytes % RBC Morphology Abnorm A Anisocytosis 1+ A Macrocytosis 1+ A Ovalocytes PT INR Sodium Chloride BUN Creatinine Glucose Osmolality Calcium Phosphorus Albumin Globulin Albumin/Globulin Ratio Urine Glucose (UA) >=500 A Ur Leukocyte Esterase 25 A Meds: Medications Acetaminophen (Tylenol) 650 mg PO Q4-6HP PRN PRN Reason: PAIN/FEVER > 101 Hydrocodone Bitart/Acetaminophen ([place] 10/325mg) 1 tab PO Q6HP PRN PRN Reason: pain Albuterol/Ipratropium (Duoneb) 3 ml NEB Q4HRT [facility] Last Admin: 05/27/19 08:26 Dose: 3 ml Documented by: Allopurinol (Zylopriim) 300 mg PO QDAY [facility] Last Admin: 05/27/19 08:47 Dose: 300 mg Documented by: Budesonide (Pulmicort) 0.5 mg NEB Q12 [facility] Last Admin: 05/27/19 08:26 Dose: 0.5 mg Documented by: Calcitriol (Rocaltrol) 0.25 mcg PO QDAY [facility] Last Admin: 05/27/19 08:46 Dose: 0.25 mcg Documented by: Colchicine (Colcrys) 0 mg PO UD PRN PRN Reason: GOUT Cyanocobalamin (Vitamin B-12) 1,000 mcg PO BID [facility] Stop: 05/28/19 09:01 Last Admin: 05/27/19 08:46 Dose: 1,000 mcg Documented by: Dextrose (Dextrose 50%) 0 ml IV UD PRN PRN Reason: Hypoglycemia Diagnostic Test (Pha) (Accu-Chek) 1 each FS ACHS [facility] Last Admin: 05/27/19 07:49 Dose: 1 each Documented by: Docusate Sodium (Colace) 100 mg PO BID [facility] Last Admin: 05/27/19 07:49 Dose: Not Given Documented by: Folic Acid (Folic Acid) 1 mg PO DAILY [facility] Last Admin: 05/27/19 08:47 Dose: 1 mg Documented by: Gabapentin (Neurontin) 300 mg PO QDAY [facility] Last Admin: 05/27/19 08:46 Dose: 300 mg Documented by: Glipizide (Glucotrol) 15 mg PO QAMAC [facility] Last Admin: 05/27/19 08:45 Dose: 15 mg Documented by: Glucose (Insta-Glucose) 15 gm PO PRN PRN PRN Reason: Hypoglycemia Guaifenesin/Codeine Phosphate (Robitussin Ac) 10 ml PO Q4HP PRN PRN Reason: Cough Hydralazine HCl (Apresoline) 10 mg IV Q4-6HP PRN PRN Reason: Hypertension Magnesium Sulfate (Magnesium Sulfate) 2 gm in 50 mls @ 50 mls/hr IV UD PRN PRN Reason: MG = or < 1.7 Acetaminophen (Ofirmev) 1,000 mg in 100 mls @ 200 mls/hr IV Q6HP PRN PRN Reason: PAIN/FEVER > 101 Piperacillin Sod/Tazobactam (Sod 2.25 gm/ Sodium Chloride) 50 mls @ 100 mls/hr IV Q6H [facility]; Protocol Last Admin: 05/27/19 05:38 Dose: 100 mls/hr Documented by: Insulin Human Lispro (Humalog) 0 unit SQ ACHS [facility]; Protocol Last Admin: 05/27/19 08:47 Dose: 3 units Documented by: Iron Carb/Multivit/Cable Television Access Coordinator/Folic Acid (Multivitamin W/Minerals) 1 tab PO DAILY [facility] Last Admin: 05/27/19 08:47 Dose: 1 tab Documented by: [facility]othyroxine [facility] ([facility]throid) [facility] Last Admin: 05/27/19 08:47 Dose: 25 mcg Documented by: Levothyroxine Sodium (Synthroid) 112 [facility]cg [facility] Last Admin: 05/27/19 08:47 Dose: 112 mcg Documented by: Multivitamins/Minerals (Ocuvite) 1 tab PO DAILY [facility] Last Admin: 05/27/19 08:46 Dose: 1 tab Documented by: Ondansetron HCl (Zofran) 4 mg IV Q4-6HP PRN PRN Reason: Nausea And Vomiting Breo Ellipta 200-25 (Mcg Inh) 1 dose INH Q24H [facility] Last Admin: 05/27/19 08:52 Dose: 1 dose Documented by: Darshanse Ellipta] 1 (Inh) 1 dose INH Q24H [facility] Last Admin: 05/27/19 08:44 Dose: 1 dose Documented by: Triamcinolone Acetonide 0.1% Ointment 1 dose TOPICAL BID [facility] Last Admin: 05/27/19 08:52 Dose: 1 dose Documented by: Potassium Chloride (Klor-Con) 40 meq PO DAILYP PRN PRN Reason: K+ < 3.5 [facility]) [facility] Admin: 05/27/19 08:46 Dose: 40 mg Documented by: Senna/Docusate Sodium (Senna Plus Tablet) 1 tab PO HS [facility] Last Admin: 05/26/19 21:38 Dose: 1 tab Documented by: Simvastatin (Zocor) 20 mg PO QPM [facility] Last Admin: 05/26/19 21:39 Dose: 20 mg Documented by: Sitagliptin Phosphate (Januvia) 50 mg PO QDAY [facility] Last Admin: 05/27/19 08:46 Dose: 50 mg Documented by: Sodium Chloride (Saline Flush) 10 ml IV Q8 [facility] Last Admin: 05/27/19 06:02 Dose: 10 ml Documented by: Tamsulosin HCl (Flomax) 0.4 mg PO QDAY [facility] Last Admin: 05/27/19 08:46 Dose: 0.4 mg Documented by: Thiamine HCl (Vitamin B1) 100 mg PO DAILY [facility] Last Admin: 05/27/19 08:47 Dose: 100 mg Documented by: Trazodone HCl (Desyrel) 50 mg PO HSP PRN PRN Reason: Insomnia Last Admin: 05/26/19 23:40 Dose: 50 mg Documented by: Warfarin Sodium (Coumadin Per Pharmacy) 1 order PO DAILY@1400 [facility] Last Admin: 05/26/19 16:52 Dose: Not Given Documented by: Medical - PN: A/P - Time Spent With Patient Total time spent is greater than 50% in coordination of care (as documented) at patient's floor/unit and/or counseling patient: - Narrative A/P Narrative: A: *PNA -suspect Aspiration: -Chest CT with Large Left effusion, pleural plaquing, possible aspiration. 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 -home warfarin *Prosthetic aortic valve *h/o of CVA's: *Neuropathy: on gabapentin *Hypothyroidism/HLD/BPH: on thyroxine, statin, tamsulosin *Hyponatremia: Plan: -Zosyn -bronchodilators/IV steroids(wean)/pulmonary toilet and supplemental oxygen -cytology pending -IV lasix -hold BB for low BP -RT to assess for home O2 -cont SSI/sitagliptin -PT/OT, Nutrition support -Case management to coordinate discharge planning likely SNF -ppx: warfarin per pharm DNR Medical - PN: Qual - VTE Deep Vein Thrombosis/Pulmonary Embolism Present on Admission: No
[2019-05-27] MEDS ORDERED: FUROSEMIDE 40 MG/4 ML VIAL IV ONE ×2 (09:18)
[2019-05-27] MEDS ORDERED: ALBUMIN HUMAN 12.5 GM/50 ML BAG IV ONE (09:18)
[2019-05-27] MEDS: SENNOSIDES/DOCUSATE SODIUM 1 TAB TABLET PO SCH (20:40)
[2019-05-27] MEDS: SIMVASTATIN 20 MG TABLET PO SCH (20:40)
[2019-05-27] MEDS: traZODone HCL 50 MG TABLET PO PRN (20:40)
[2019-05-28] MEDS: IPRATROPIUM/ALBUTEROL 3 ML AMPUL.NEB NEB SCH ×3 (03:19→10:58)
[2019-05-28 05:58] LABS: INR 2.7 (0.9-1.1); Prothrombin Time 28.1 sec (11.9-14.5)
[2019-05-28] MEDS: PIPERACILLIN SODIUM/TAZOBACTAM 2.25 GM in 0.9 % SODIUM CHLORIDE 50 ML IV SCH ×2 (06:06→15:38)
[2019-05-28] MEDS: 0.9 % SODIUM CHLORIDE 10 ML SYRINGE IV SCH ×2 (06:07→15:39)
[2019-05-28] MEDS: BUDESONIDE 0.5 MG/2 ML AMPUL.NEB NEB SCH (07:37)
[2019-05-28] MEDS ORDERED: POLYETHYLENE GLYCOL 3350 17 GM PACKET PO ONE (08:00)
--- NOTE | 2019-05-28 08:02 | Internal Med Progress Note ---
Medical - PN: Subj Patient information: Note initiated : 05/28/19 at 7:58 am Service Date, if different from initiated Date: [] Patient: Jeramy French a 83 y/o M admitted on 05/23/19 for SOB for 3 weeks. Chief Complaint: [] Interval history: Mr. French is a 83 year old M with a history of chronic disease stage I V/CAD/CHF/a flutter on anticoagulation presents to the ER with roughly 1 month onset of dyspnea, weakness fatigue and inability to function. Patient has noted progressive weight gain involving lower extremity along with gradual distention of abdomen. But he denies abdominal pain. His shortness of breath has progressed from maximal exertion to dyspnea at rest. He has not been able to get a restful sleep over the last couple of weeks. He is markedly orthopneic. He presents today with a combination of above symptoms. Initial work-up was consistent with severe hypoxia requiring 4 L oxygen. Patient was started on noninvasive ventilation after imaging showed bibasilar pneumonia/pleural effusion and blood gas consistent with hypoxia. Patient was started on antibiotic coverage and Solu-Medrol and subsequently hospitalist service was consulted. After evaluation patient is alert and oriented. He was able to answer most of the question. He is unable to talk in full sentences. No family members are present. He denies recent sick contacts. He denies fever chills but endorses to nonproductive cough that has progressed. He has not seen a primary care physician since the symptoms began. Other than that he denies diarrhea, dysuria, rash, joint pain, unilateral weakness, fainting spells or vertigo. 05/24-patient seen in room along with daughter. Feels a lot better. Overnight on BiPAP. Breathing a lot better. No telemetry events. paced rhythm, White count 9.5. Diuresing. Distended abdomen. Unable to talk in full sentences. Continuing antibiotic coverage on Zosyn and Levaquin. 05/25-patient doing well. Off BiPAP. ABG 7.43/30 7/64. On 2 L oxygen. Echocardiogram unremarkable with normal EF. CT chest pending. Abdominal ultrasound no evidence of mass lesion/ascites. X-ray chest worsening atelectasis/pneumonia bilateral lungs. Continue antibiotic coverage. Await ST eval. Continue aspiration precaution. White count at 18.6. INR 3. Creatinine 2.4. No overnight fever chills. 05/26 Seen by speech therapy, no clinical signs or symptoms of aspiration. She had thoracentesis yesterday of 1400 cc. Currently on 2 L at 95% sats. Has occasional cough. His shortness of breath is present but improving every day. No other complaints. 05/27 Was on room air yesterday and overnight but then placed on oxygen this morning b/c finger was reading 82%, and was placed on 4L's to bring to 92. However in rechecking the same finger on 4L's it read 87% but the next finger read 97% and others read 94 and 93%. He feels his shortness of breath is baseline. denies cough. 05/28 Slept much better. Still has a occasional dry cough. Little to headache at one point. Feels his shortness of breath might be a little bit worse than yesterday. Per the nurse sats are 97% on 2 L in bed and she took the oxygen off and set him up in the chair to eat breakfast and his sats went to 88-89%. Planes of constipation Review of Systems: denies headache/fever/chills/nausea/vomiting/chest or abdominal pain/diarrhea. Otherwise see above. - Constitutional Vitals: Vital Signs Temp Pulse Resp BP Pulse Ox 98.0 F 66 16 109/69 94 05/28/19 03:22 05/28/19 07:46 05/28/19 07:46 05/28/19 03:22 05/28/19 07:39 Period Temp Pulse Resp BP Sys/[place] Pulse Ox Last 24 Hr 97.1 F-98.0 F 63-94 -22 101-121/53-78 84-98 Intake and Output 05/27/19 05/28/19 05/28/19 21:59 05:59 13:59 Intake Total 580 450 Output Total 950 700 Balance -370 -250 Weight 111.992 kg Intake & Output: Intake & Output 05/27/19 05/28/19 05/28/19 21:59 05:59 13:59 Intake Total 580 450 Output Total 950 700 Balance -370 -250 Weight 111.992 kg Intake: IV 100 50 Zosyn 2.25 gm In Sodium 100 50 Chloride 0.9% 50 ml @ 100 mls/ hr IV Q6H [facility] Rx#:[id number] Oral 480 400 Output: Void Amount 950 700 Other: Meal Nourishment/Supplement Percent of Meal Consumed 75% 100% Feeding Ability Independent Independent Urine Appearance Clear Clear Urine Color Bright Yellow Bright Yellow Urine Odor Normal Normal Exam: General: Alert, Awake, No acute Distress Eyes/N/T: EOMI, Head/Neck: neck supple, CV: RRR, No murmurs, Pulm: left base with rales and mild on right, occasional exp wheeze Abd: soft, nontender, +BS x4 Ext: no clubbing/cyanosis, trace-1+ b/l LE edema - greatly improved Neuro: Alert, no focal deficits, moves all extremities, Skin: warm/dry Medical - PN: Obj Da - Labs CBC & Chem 7: 05/27/19 04:30 05/27/19 04:30 Labs: Abnormal Lab Results 05/28/19 05/27/19 05/27/19 04:25 04:30 04:30 WBC RBC Hgb Hct MCV RDW MPV Gran % Lymph % (Auto) Gran # Lymph # (Auto) Seg Neutrophils % Lymphocytes % Myelocytes % RBC Morphology Anisocytosis Macrocytosis Ovalocytes PT 28.1 H 34.3 H INR 2.7 H 3.5 H Sodium 130 L Chloride 92 L BUN 67 H Creatinine 2.6 H Glucose 243 H Osmolality Calcium Phosphorus Albumin 3.1 L Albumin/Globulin Ratio 0.9 L 05/27/19 05/26/19 05/26/19 04:30 15:04 10:40 WBC 16.1 H RBC 3.49 L Hgb 11.2 L Hct 35.1 L MCV 100.7 H RDW 16.7 H MPV Gran % Lymph % (Auto) Gran # Lymph # (Auto) Seg Neutrophils % 83 H Lymphocytes % 3 L Myelocytes % RBC Morphology Anisocytosis Macrocytosis Ovalocytes PT INR Sodium 129 L Chloride 88 L BUN 63 H Creatinine 2.6 H Glucose 288 H Osmolality 304 H Calcium Phosphorus Albumin Albumin/Globulin Ratio 05/26/19 05/26/19 05/26/19 06:30 06:29 04:20 WBC 20.7 H RBC 3.35 L Hgb 10.8 L Hct 33.3 L MCV RDW 16.5 H MPV 7.0 L Gran % 96.0 H Lymph % (Auto) 1.5 L Gran # 19.9 H Lymph # (Auto) 0.3 L Seg Neutrophils % Lymphocytes % Myelocytes % RBC Morphology Anisocytosis Macrocytosis Ovalocytes PT 34.5 H INR 3.5 H Sodium 127 L Chloride 88 L BUN 59 H Creatinine 2.5 H Glucose 230 H Osmolality Calcium 8.5 L Phosphorus 4.9 H Albumin Albumin/Globulin Ratio 0.9 L 05/26/19 04:20 WBC 18.7 H RBC 3.50 L Hgb 11.3 L Hct 35.0 L MCV 100.1 H RDW 16.8 H MPV 7.1 L Gran % Lymph % (Auto) Gran # Lymph # (Auto) Seg Neutrophils % 91 H Lymphocytes % 2 L Myelocytes % 1 H RBC Morphology Abnorm A Anisocytosis 1+ A Macrocytosis 1+ A Ovalocytes Rare A PT INR Sodium Chloride BUN Creatinine Glucose Osmolality Calcium Phosphorus Albumin Albumin/Globulin Ratio Meds: Medications Acetaminophen (Tylenol) 650 mg PO Q4-6HP PRN PRN Reason: PAIN/FEVER > 101 Hydrocodone Bitart/Acetaminophen ([place] 10/325mg) 1 tab PO Q6HP PRN PRN Reason: pain Last Admin: 05/27/19 21:32 Dose: 1 tab Documented by: Albuterol/Ipratropium (Duoneb) 3 ml NEB Q4HRT [facility] Last Admin: 05/28/19 07:37 Dose: 3 ml Documented by: Allopurinol (Zylopriim) 300 mg PO QDAY [facility] Last Admin: 05/27/19 08:47 Dose: 300 mg Documented by: Budesonide (Pulmicort) 0.5 mg NEB Q12 [facility] Last Admin: 05/28/19 07:37 Dose: 0.5 mg Documented by: Calcitriol (Rocaltrol) 0.25 mcg PO QDAY [facility] Last Admin: 05/27/19 08:46 Dose: 0.25 mcg Documented by: Colchicine (Colcrys) 0 mg PO UD PRN PRN Reason: GOUT Cyanocobalamin (Vitamin B-12) 1,000 mcg PO BID [facility] Stop: 05/28/19 09:01 Last Admin: 05/27/19 20:40 Dose: 1,000 mcg Documented by: Dextrose (Dextrose 50%) 0 ml IV UD PRN PRN Reason: Hypoglycemia Diagnostic Test (Pha) (Accu-Chek) 1 each FS ACHS [facility] Last Admin: 05/27/19 20:40 Dose: 1 each Documented by: Docusate Sodium (Colace) 100 mg PO BID [facility] Last Admin: 05/27/19 20:40 Dose: 100 mg Documented by: Folic Acid (Folic Acid) 1 mg PO DAILY [facility] Last Admin: 05/27/19 08:47 Dose: 1 mg Documented by: Gabapentin (Neurontin) 300 mg PO QDAY [facility] Last Admin: 05/27/19 08:46 Dose: 300 mg Documented by: Glipizide (Glucotrol) 15 mg PO QAMAC [facility] Last Admin: 05/27/19 08:45 Dose: 15 mg Documented by: Glucose (Insta-Glucose) 15 gm PO PRN PRN PRN Reason: Hypoglycemia Guaifenesin/Codeine Phosphate (Robitussin Ac) 10 ml PO Q4HP PRN PRN Reason: Cough Hydralazine HCl (Apresoline) 10 mg IV Q4-6HP PRN PRN Reason: Hypertension Magnesium Sulfate (Magnesium Sulfate) 2 gm in 50 mls @ 50 mls/hr IV UD PRN PRN Reason: MG = or < 1.7 Acetaminophen (Ofirmev) 1,000 mg in 100 mls @ 200 mls/hr IV Q6HP PRN PRN Reason: PAIN/FEVER > 101 Piperacillin Sod/Tazobactam (Sod 2.25 gm/ Sodium Chloride) 50 mls @ 100 mls/hr IV Q6H [facility]; Protocol Last Admin: 05/28/19 06:06 Dose: 100 mls/hr Documented by: Insulin Human Lispro (Humalog) 0 unit SQ [facility]; Protocol Last Admin: 05/27/19 20:45 Dose: 6 units Documented by: Iron Carb/Multivit/Inspection Engineer/Folic Acid (Multivitamin W/Minerals) 1 tab PO DAILY [facility] Last Admin: 05/27/19 08:47 Dose: 1 tab Documented by: Lactobacillus Rhamnosus (Culturelle) 1 cap PO BID [facility] Levothyroxine Sodium (Synthroid) 25 mcg PO QAMAC [facility] Last Admin: 05/27/19 08:47 Dose: 25 mcg Documented by: Levothyroxine Sodium (Synthroid) 112 mcg PO QAMAC [facility] Last Admin: 05/27/19 08:47 Dose: 112 mcg Documented by: Multivitamins/Minerals (Ocuvite) 1 tab PO DAILY [facility] Last Admin: 05/27/19 08:46 Dose: 1 tab Documented by: Ondansetron HCl (Zofran) 4 mg IV Q4-6HP PRN PRN Reason: Nausea And Vomiting Breo Ellipta 200-25 (Mcg Inh) 1 dose INH Q24H [facility] Last Admin: 05/27/19 08:52 Dose: 1 dose Documented by: Heather Naranjota] 1 (Inh) 1 dose INH Q24H [facility] Last Admin: 05/27/19 08:44 Dose: 1 dose Documented by: Triamcinolone Acetonide 0.1% Ointment 1 dose TOPICAL BID [facility] Last Admin: 05/27/19 20:44 Dose: 1 dose Documented by: Potassium Chloride (Klor-Con) 40 meq PO DAILYP PRN PRN Reason: K+ < 3.5 Prednisone (Prednisone) 40 mg PO [facility] Last Admin: 05/27/19 08:46 Dose: 40 mg Documented by: Senna/Docusate Sodium (Senna Plus Tablet) 1 tab PO HS [facility] Last Admin: 05/27/19 20:40 Dose: 1 tab Documented by: Simvastatin (Zocor) 20 mg PO QPM [facility] Last Admin: 05/27/19 20:40 Dose: 20 mg Documented by: Sitagliptin Phosphate (Januvia) 50 mg PO QDAY [facility] Last Admin: 05/27/19 08:46 Dose: 50 mg Documented by: Sodium Chloride (Saline Flush) 10 ml IV Q8 [facility] Last Admin: 05/28/19 06:07 Dose: 10 ml Documented by: Tamsulosin HCl (Flomax) 0.4 mg PO QDAY [facility] Last Admin: 05/27/19 08:46 Dose: 0.4 mg Documented by: Thiamine HCl (Vitamin B1) 100 mg PO DAILY [facility] Last Admin: 05/27/19 08:47 Dose: 100 mg Documented by: Trazodone HCl (Desyrel) 50 mg PO HSP PRN PRN Reason: Insomnia Last Admin: 05/27/19 20:40 Dose: 50 mg Documented by: Warfarin Sodium (Coumadin Per Pharmacy) 1 order PO DAILY@1400 [facility] Last Admin: 05/27/19 13:11 Dose: Not Given Documented by: Medical - PN: A/P - Time Spent With Patient Total time spent is greater than 50% in coordination of care (as documented) at patient's floor/unit and/or counseling patient: - Narrative A/P Narrative: A: *PNA -suspect Aspiration: -Chest CT with Large Left effusion, pleural plaquing, possible aspiration. 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 -home warfarin *Prosthetic aortic valve *h/o of CVA's: *Neuropathy: on gabapentin *Hypothyroidism/HLD/BPH: on thyroxine, statin, tamsulosin *Hyponatremia: Plan: -Zosyn -bronchodilators/IV steroids(wean)/pulmonary toilet and supplemental oxygen -cytology pending -cont home lasix -f/u CT chest -hold BB for low BP -RT to assess for home O2 -cont SSI/sitagliptin -PT/OT, Nutrition support -Case management to coordinate discharge planning likely SNF -ppx: warfarin per pharm DNR Medical - PN: Qual - VTE Deep Vein Thrombosis/Pulmonary Embolism Present on Admission: No
[2019-05-28] MEDS ORDERED: FUROSEMIDE 40 MG TABLET PO SCH (09:00)
[2019-05-28] MEDS ORDERED: LACTOBACILLUS 1 CAPSULE PO SCH (09:00)
[2019-05-28] MEDS: glipiZIDE 5 MG TABLET PO SCH (09:12)
[2019-05-28] MEDS: predniSONE 20 MG TABLET PO SCH (09:14)
[2019-05-28] MEDS: CYANOCOBALAMIN (VITAMIN B-12) 500 MCG TABLET PO SCH (09:15)
[2019-05-28] MEDS: TAMSULOSIN 0.4 MG CAPSULE PO SCH (09:15)
[2019-05-28] MEDS: LEVOTHYROXINE SODIUM 112 MCG TABLET PO SCH (09:16)
[2019-05-28] MEDS: GABAPENTIN 300 MG CAPSULE PO SCH (09:16)
[2019-05-28] MEDS: sitaGLIPtin 50 MG TABLET PO SCH (09:16)
[2019-05-28] MEDS: FOLIC ACID 1 MG TABLET PO SCH (09:17)
[2019-05-28] MEDS: MULTIVIT,THER IRON,CA,FA & MIN 1 TABLET PO SCH (09:19)
[2019-05-28] MEDS: DOCUSATE SODIUM 100 MG CAPSULE PO SCH (09:20)
[2019-05-28] MEDS: CALCITRIOL 0.25 MCG CAPSULE PO SCH (09:21)
[2019-05-28] MEDS: ALLOPURINOL 300 MG TABLET PO SCH (09:22)
[2019-05-28] MEDS: THIAMINE 100 MG TABLET PO SCH (09:22)
[2019-05-28] MEDS: LEVOTHYROXINE 25 MCG TABLET PO SCH (09:23)
[2019-05-28] MEDS: VIT A,C & E/LUTEIN/MINERALS TABLET PO SCH (09:23)
[2019-05-28] MEDS: INCRUSE ELLIPTA INH SCH (09:25)
[2019-05-28] MEDS: INSULIN LISPRO 1 UNIT/0.01 ML UNIT SQ SCH ×2 (09:28→15:38)
--- NOTE | 2019-05-29 11:54 | Non-GYN Cytology Report ---
NON STONE LAYER SPECIMEN NG DX CATEGORY Negative MICROSCOPIC DIAGNOSIS PLEURAL FLUID, THORACENTESIS: -- ACUTE AND CHRONIC INFLAMMATION WITH REACTIVE MESOTHELIAL CELLS. -- NO ATYPICAL OR MALIGNANT CELLS IDENTIFIED. (ACP:rosa elena) MICROSCOPIC DESCRIPTION The left pleural fluid material reveals numerous lymphocytes and neutrophils with a few reactive mesothelial cells and acellular debris. No epithelial atypia or carcinoma is seen. (ACP:rosa elena) CLINICAL HISTORY Left pleural effusion. EXTERNAL COMMENT ~1000 mL dark red fluid: 1 thinprep, 1 H/E, 1 Diff Quik, 1 Woods Giemsa, 1 cell block Electronically Signed by: Javon Vidal M.D.
== END 2019-05-28 14:50 | disposition home health service (06) | DRG 177 ==
LOC: ED 17:20 → ICU 20:11 → MEDSUR 05-26 10:50
PROVIDERS: ADMIT Internal Medicine; ATTEND Internal Medicine